=== PATIENT | male | born 1935 | race Caucasian/White ===

== ENCOUNTER 2016-11-15 07:21 | Emergency (ER) | payer MEDICARE ==
[~2016-11-15] VITALS: Ht 177.8 cm; Wt 68.0 kg
--- OUTSIDE RECORDS SUMMARY | 2016-11-15 07:27 | XMS REPORT | Continuity of Care Document ---
Author Author [facility] Organization [facility] Address Unknown Phone Unavailable Care Team Providers Care Well Testing Operator Name Role Phone ZAIN ABARCA MD PCP Insurance Providers Payer Name Policy Number Subscriber Name Relationship [employer] [id number] Alfonso Gomez 20 Self / Same As Patient Problems No known problems or medical conditions. Medications No known medications. Social History Social History Problem Response Recorded Date/Time Recent Foreign Travel No 09/05/2014 2:07pm Hospital Discharge Instructions No hospital discharge instructions. Plan of Care No plan of care. Functional Status No functional status results. Allergies, Adverse Reactions, Alerts No known allergies. Immunizations No immunization records. Vital Signs No known vital signs results. Results No known relevant diagnostic tests, laboratory data and/or discharge summary. Procedures No known history of procedures. Encounters Encounter Location Date/Time Discharged Recurring Via [facility] 09/05/14 2:15pm
[2016-11-15 07:39] LABS: BASOPHILS # (AUTO) 0.1 10^3/uL (0.0-0.1); BASOPHILS % (AUTO) 1 % (0-10); EOSINOPHILS # (AUTO) 0.2 10^3/uL (0.0-0.3); EOSINOPHILS % (AUTO) 3 % (0-10); LYMPHOCYTES # (AUTO) 1.3 X 10^3 (1.0-4.0); LYMPHOCYTES % (AUTO) 18 % (12-44); MEAN CORPUSCULAR HEMOGLOBIN 30 PG (25-34); MEAN CORPUSCULAR HGB CONC 33 G/DL (32-36); MEAN CORPUSCULAR VOLUME 91 FL (80-99); MEAN PLATELET VOLUME 10.5 FL (7.4-10.4); MONOCYTES # (AUTO) 0.8 X 10^3 (0.0-1.0); MONOCYTES % (AUTO) 11 % (0-12); NEUTROPHILS # (AUTO) 4.7 X 10^3 (1.8-7.8); NEUTROPHILS % (AUTO) 67 % (42-75); PLATELET COUNT 223 10^3/uL (130-400); RED BLOOD COUNT 4.68 10^6/uL (4.35-5.85); RED CELL DISTRIBUTION WIDTH 14.3 % (10.0-14.5); WHITE BLOOD COUNT 7.1 10^3/uL (4.3-11.0)
[2016-11-15 07:48] LABS: INR 0.9 (0.8-1.4); PROTHROMBIN TIME PATIENT 12.3 SEC (12.2-14.7)
--- NOTE | 2016-11-15 07:48 | ED Neurological Problem ---
General Chief Complaint: Neurological Problems Stated Complaint: LEFT HAND NUMBNESS/TINGLING Source: patient Exam Limitations: no limitations History of Present Illness Time seen by provider: 07:35 Initial Comments The patient is a 81-year-old white male who presents this morning with a chief complaint of left-sided weakness. He reported that he arose at about 0600 this morning and found the onset of this left sided problem shortly thereafter. 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 It did not affect his ability to walk. The right sided stroke improved substantially but left him with a mild right hand problem. He is right-handed. 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 Timing/Duration: 1-3 hours Allergies and Home Medications Allergies Coded Allergies: No Known Drug Allergies (Unverified , 11/15/16) Constitutional: see HPI Eyes: No Symptoms Reported Ears, Nose, Mouth, Throat: no symptoms reported Respiratory: no symptoms reported Cardiovascular: no symptoms reported Gastrointestinal: no symptoms reported Genitourinary: no symptoms reported Musculoskeletal: see HPI muscle weakness Skin: no symptoms reported Psychiatric/Neurological: No Symptoms Reported Endocrine: No Symptoms Reported Hematologic/Lymphatic: No Symptoms Reported Past Nozksgu-Flhgwq-Bpnxwt Hx Patient Social History Alcohol Use: Denies Use Recreational Drug Use: No Smoking Status: Never a Smoker Recent Hopitalizations: No Surgeries HX Surgeries: No Respiratory Hx Respiratory Disorders: No Cardiovascular Hx Cardiac Disorders: No Neurological Hx Neurological Disorders: Yes Neurological Disorders: Stroke Reproductive System Hx Reproductive Disorders: No Genitourinary Hx Genitourinary Disorders: No Gastrointestinal Hx Gastrointestinal Disorders: No Musculoskeletal Hx Musculoskeletal Disorders: No Endocrine Hx Endocrine Disorders: No HEENT HX ENT Disorders: No Cancer Hx Cancer: No Psychosocial Hx Psychiatric Problems: No Physical Exam Vital Signs Vital Sign - Last 12Hours 11/15/16 07:26 Temp 94.4 Pulse 78 Resp 12 B/P 155/86 Pulse Ox 97 O2 Delivery Room Air Capillary Refill : General Appearance: no apparent distress Neck: full range of motion Respiratory: chest non-tender lungs clear normal breath sounds no respiratory distress no accessory muscle use respiratory distress Cardiovascular: normal peripheral pulses regular rate, rhythm no edema no gallop no JVD no murmur Gastrointestinal: normal bowel sounds non tender soft no organomegaly no pulsatile mass Back: normal inspection no CVA tenderness no vertebral tenderness CVA tenderness (R) CVA tenderness (L) Neurologic/Psychiatric: cryptological technician II-XII nml as tested no motor/sensory deficits alert normal mood/affect oriented x 3 abnormal cerebellar tests Crainal Nerves: normal hearing normal speech PERRL Coordination/Gait: normal finger to nose normal gait Skin: normal color warm/dry Lymphatic: no adenopathy Comments Cranial nerves II through XII are grossly intact. Speech is clear. Biceps and triceps are 2+ and equal bilaterally. He is able to perform alternating finger to thumb movements bilaterally. It is noted that he has contractures of fingers 2 through 5 on the right hand. No nodularity is noted to the palmar flexion tendons. He is able to operations intelligence from that position. Progress/Results/Core Measures Results/Orders Lab Results Laboratory Tests Test 11/15/16 07:33 Range/Units Alanine Aminotransferase (ALT/SGPT) 15 0-55 U/L Albumin 4.0 3.2-4.5 G/DL Alkaline Phosphatase 72 40-136 U/L Anion Gap 11 5-14 MMOL/L Aspartate Amino Transf (AST/SGOT) 21 5-34 U/L BUN/Creatinine Ratio 15 Basophils # (Auto) 0.1 0.0-0.1 10^3/uL Basophils (%) (Auto) 1 0-10 % Blood Urea Nitrogen 15 7-18 MG/DL Calcium Level 8.9 8.5-10.1 MG/DL Carbon Dioxide Level 22 21-32 MMOL/L Chloride Level 106 98-107 MMOL/L Creatinine 1.02 0.60-1.30 MG/DL Eosinophils # (Auto) 0.2 0.0-0.3 10^3/uL Eosinophils (%) (Auto) 3 0-10 % Estimat Glomerular Filtration Rate > 60 Glucose Level 90 70-105 MG/DL Hematocrit 43 40-54 % Hemoglobin 14.2 13.3-17.7 G/DL INR Comment 0.9 0.8-1.4 Lymphocytes # (Auto) 1.3 1.0-4.0 X 10^3 Lymphocytes (%) (Auto) 18 12-44 % Mean Corpuscular Hemoglobin 30 25-34 PG Mean Corpuscular Hemoglobin Concent 33 32-36 G/DL Mean Corpuscular Volume 91 80-99 FL Mean Platelet Volume 10.5 H 7.4-10.4 FL Monocytes # (Auto) 0.8 0.0-1.0 X 10^3 Monocytes (%) (Auto) 11 0-12 % Neutrophils # (Auto) 4.7 1.8-7.8 X 10^3 Neutrophils (%) (Auto) 67 42-75 % Platelet Count 223 130-400 10^3/uL Potassium Level 4.6 3.6-5.0 MMOL/L Prothrombin Time 12.3 12.2-14.7 SEC Red Blood Count 4.68 4.35-5.85 10^6/uL Red Cell Distribution Width 14.3 10.0-14.5 % Sodium Level 139 135-145 MMOL/L Total Bilirubin 1.0 0.1-1.0 MG/DL Total Protein 6.6 6.4-8.2 G/DL Troponin I < 0.30 <0.30 NG/ML White Blood Count 7.1 4.3-11.0 10^3/uL My Orders Orders-JANELLE NICHOLS MD Ct Head Wo (11/15/16 07:31) O2 (11/15/16 07:31) Cbc With Automated Diff (11/15/16 07:31) Comprehensive Metabolic Panel (11/15/16 07:31) Protime With Inr (11/15/16 07:31) Troponin I (11/15/16 07:31) Ua Culture If Indicated (11/15/16 07:31) Aspirin Tablet (Aspirin Tablet) (11/15/16 08:45) Medications Given in ED Current Medications Medications Dose Ordered Sig/Lele Route Start Time Stop Time Status Last Admin Dose Admin Aspirin 325 mg ONCE ONCE PO 11/15/16 08:45 11/15/16 08:46 DC 11/15/16 08:59 325 MG Vital Signs/I&O Vital Sign - Last 12Hours 11/15/16 07:26 Temp 94.4 Pulse 78 Resp 12 B/P 155/86 Pulse Ox 97 O2 Delivery Room Air Departure Communication Progress Notes CT was negative. Laboratory was negative. Given his report of return to usual status, and his muscular and coordination performance, he will be discharged on aspirin. Impression Impression: Primary Impression: TIA Disposition: 01 HOME, SELF-CARE Condition: Improved Departure-Patient Inst. Decision time for Depature: 10:08 Patient Instructions: Transient Ischemic Attack (DC) Add. Discharge Instructions: All discharge instructions reviewed with patient and/or family. Voiced understanding. Add 81 mg aspirin to your daily medications Get appointment to see Dr. Gunn in the next week or 2. JANELLE NICHOLS MD Nov 15, 2016 07:48
[2016-11-15 07:56] LABS: ALANINE AMINOTRANSFERASE 15 U/L (0-55); ANION GAP 11 MMOL/L (5-14); ASPARTATE AMINO TRANSFERASE 21 U/L (5-34); BLOOD UREA NITROGEN 15 MG/DL (7-18); BUN/CREATININE RATIO 15; CALCIUM 8.9 MG/DL (8.5-10.1); CARBON DIOXIDE 22 MMOL/L (21-32); CHLORIDE 106 MMOL/L (98-107); CREATININE SERUM 1.02 MG/DL (0.60-1.30); GFR ESTIMATED > 60; GLUCOSE 90 MG/DL (70-105); POTASSIUM 4.6 MMOL/L (3.6-5.0); SODIUM 139 MMOL/L (135-145); TOTAL PROTEIN 6.6 G/DL (6.4-8.2)
[2016-11-15 08:02] LABS: TROPONIN I < 0.30 NG/ML (<0.30)
--- NOTE | 2016-11-15 08:26 | Diagnostic Imaging Report ---
PROCEDURE: CT head without contrast. TECHNIQUE: Multiple contiguous axial images were obtained through the brain without the use of intravenous contrast. INDICATION: Left-sided weakness. FINDINGS: There is no intracranial hemorrhage, edema, or mass effect. There is prominent periventricular and deep white matter hypodensities compatible with chronic microvascular ischemic changes. There is a 1.1 x 0.6-cm old lacunar infarct in the left periventricular white matter. No hydrocephalus. No extra-axial fluid collection or hemorrhage is seen. Deformity along the anterior wall of the right maxillary sinus and adjacent facial bones is suggestive of an old maxillofacial fracture. The visualized portions of the paranasal sinuses and orbits otherwise appear grossly unremarkable. IMPRESSION: No intracranial hemorrhage. Dictated by: Dictated on workstation # [id number]
[2016-11-15] MEDS ORDERED: ASPIRIN 325 MG (5 GR) TABLET PO ONE (08:45)
[2016-11-15 10:27] VITALS: BP 162/140
== END 2016-11-15 10:28 | disposition home or self-care (01) ==
LOC: EDUNIT# 07:21 → ER 07:24
DX: G45.9 Transient cerebral ischemic attack, unspecified (principal); Z86.73 Personal history of transient ischemic attack (TIA), and cerebral infarction without residual deficits
CPT/HCPCS: 36415; 70450; 80053; 84484; 85025; 85610

== ENCOUNTER 2016-12-18 14:08 | Outpatient (CLI) | payer MEDICARE ==
[~2016-12-18] VITALS: Ht 177.8 cm; Wt 68.0 kg
--- OUTSIDE RECORDS SUMMARY | 2016-12-18 14:11 | XMS REPORT | Continuity of Care Document ---
Author Author [facility] Organization [facility] Address Unknown Phone Unavailable Care Team Providers Care Speech Language Pathologist Assistant Name Role Phone ZAIN ABARCA MD PCP Insurance Providers Payer Name Policy Number Subscriber Name Relationship [employer] [id number] Alfonso Gomez 20 Self / Same As [...] Encounters Encounter Location Date/Time Discharged Recurring Via [facility] 09/05/14 2:15pm
[2016-12-18 14:14] VITALS: BP 125/71
[2016-12-18] MEDS ORDERED: DOXA8TAB73 PO (14:17)
[2016-12-18] MEDS ORDERED: ATOR40TA70 PO (14:17)
[2016-12-18] MEDS ORDERED: ASPI-586 PO (14:17)
[2016-12-18] MEDS ORDERED: FINA5TAB6 PO (14:17)
[2016-12-18 14:51] LABS: BASOPHILS # (AUTO) 0.1 10^3/uL (0.0-0.1); BASOPHILS % (AUTO) 1 % (0-10); EOSINOPHILS # (AUTO) 0.1 10^3/uL (0.0-0.3); EOSINOPHILS % (AUTO) 1 % (0-10); LYMPHOCYTES # (AUTO) 0.9 X 10^3 (1.0-4.0); LYMPHOCYTES % (AUTO) 14 % (12-44); MEAN CORPUSCULAR HEMOGLOBIN 31 PG (25-34); MEAN CORPUSCULAR HGB CONC 34 G/DL (32-36); MEAN CORPUSCULAR VOLUME 91 FL (80-99); MEAN PLATELET VOLUME 10.3 FL (7.4-10.4); MONOCYTES # (AUTO) 0.8 X 10^3 (0.0-1.0); MONOCYTES % (AUTO) 12 % (0-12); NEUTROPHILS # (AUTO) 4.4 X 10^3 (1.8-7.8); NEUTROPHILS % (AUTO) 71 % (42-75); PLATELET COUNT 211 10^3/uL (130-400); RED BLOOD COUNT 4.46 10^6/uL (4.35-5.85); RED CELL DISTRIBUTION WIDTH 14.1 % (10.0-14.5); WHITE BLOOD COUNT 6.1 10^3/uL (4.3-11.0)
[2016-12-18 15:10] LABS: ANION GAP 12 MMOL/L (5-14); BLOOD UREA NITROGEN 17 MG/DL (7-18); BUN/CREATININE RATIO 15; CALCIUM 8.9 MG/DL (8.5-10.1); CARBON DIOXIDE 21 MMOL/L (21-32); CHLORIDE 108 MMOL/L (98-107); CREATININE SERUM 1.13 MG/DL (0.60-1.30); GFR ESTIMATED > 60; GLUCOSE 89 MG/DL (70-105); POTASSIUM 3.8 MMOL/L (3.6-5.0); SODIUM 141 MMOL/L (135-145)
--- NOTE | 2016-12-18 16:30 | Diagnostic Imaging Report ---
PA and lateral views of the chest. INDICATION: Preoperative evaluation. FINDINGS: There is air under the right hemidiaphragm which appears to be within a colonic loop. There is eventration of the left hemidiaphragm with a relatively large herniating abdominal content with air-fluid level suggestive of a hernia. This could be a hiatal or other diaphragmatic hernia. Mild left basilar atelectasis adjacent to it is seen. The heart size is borderline enlarged. No effusion or pneumothorax. The mediastinum and ron appear unremarkable. IMPRESSION: There is a [id number]-ffrxt left hiatal or other diaphragmatic hernia containing mildly distended stomach. Mild left basilar atelectasis adjacent to the hernia seen. Dictated by: Dictated on workstation # [id number]
== END 2016-12-18 14:55 | disposition home or self-care (01) ==
LOC: PREOP 14:08
PROVIDERS: ATTEND Urology
DX: Z01.810 Encounter for preprocedural cardiovascular examination (principal); Z01.811 Encounter for preprocedural respiratory examination; Z01.812 Encounter for preprocedural laboratory examination; Z11.2 Encounter for screening for other bacterial diseases; N40.1 Benign prostatic hyperplasia with lower urinary tract symptoms; R33.8 Other retention of urine; R32 Unspecified urinary incontinence
CPT/HCPCS: 36415; 71020; 80048; 85025; 86850; 86900; 86901; 87081; 93005

== ENCOUNTER 2016-12-23 06:20 | Day surgery (SDC) | payer MEDICARE ==
[~2016-12-23] VITALS: Ht 177.8 cm; Wt 68.0 kg
[~2016-12-23 06:20] MED LIST: ASPI-586 PO; ATOR40TA70 PO; DOXA8TAB73 PO; FINA5TAB6 PO
[2016-12-23] MEDS ORDERED: NS (IVPB) 50 ML ONE (06:24)
[2016-12-23] MEDS ORDERED: cefTRIAXone 1 GM (ROCEPHIN) VIAL ONE (06:24)
--- OUTSIDE RECORDS SUMMARY | 2016-12-23 06:26 | XMS REPORT | Continuity of Care Document ---
Author Author [facility] Organization [facility] Address Unknown Phone Unavailable Care Team Providers Care Dehydration Unit Operator Name Role Phone ZAIN ABARCA MD PCP Insurance Providers Payer Name Policy Number Subscriber Name Relationship [employer] [id number] Alfonso Gomez 20 Self / Same As [...] Encounters Encounter Location Date/Time Discharged Recurring Via [facility] 09/05/14 2:15pm
--- OUTSIDE RECORDS SUMMARY | 2016-12-23 06:28 | XMS REPORT | Continuity of Care Document ---
Author Author [facility] Organization [facility] Address Unknown Phone Unavailable Care Team Providers Care Topstitcher Zigzag Name Role Phone ZAIN ABARCA MD PCP Insurance Providers Payer Name Policy Number Subscriber Name Relationship [employer] [id number] Alfonso Gomez 20 Self / Same As [...] Encounters Encounter Location Date/Time Discharged Recurring Via [facility] 09/05/14 2:15pm
[2016-12-23] MEDS ORDERED: fentaNYL INJECTION 100 MCG/2 ML AMP ONE (06:48)
[2016-12-23] MEDS ORDERED: LACTATED RINGERS 1,000 ML IV PRN (06:48)
[2016-12-23] MEDS ORDERED: MIDAZOLAM 2 MG/2 ML (VERSED) VIAL ONE (06:49)
[2016-12-23] MEDS ORDERED: CATHETER FLUSH 10 ML SYR IV PRN (07:00)
[2016-12-23] MEDS ORDERED: cefTRIAXone 1 GM/NS 50 ML IVPB IV ONE ×2 (07:00)
--- NOTE | 2016-12-23 07:04 | Progress Note-Pre Operative ---
Pre-Operative Progress Note H&P Reviewed The H&P was reviewed, patient examined and no changes noted. Date H&P Reviewed: Dec 23, 2016 Time H&P Reviewed: 07:04 Pre-Operative Diagnosis: BPH, PROSTATISM, RETENTION, AND INCONTINENCE CASEY BLANDON MD Dec 23, 2016 7:04 am
[2016-12-23] MEDS ORDERED: LACTATED RINGERS 1,000 ML IV SCH (07:05)
--- NOTE | 2016-12-23 07:05 | Progress Note-Post Operative ---
Post-Operative Progess Note Pre-Operative Diagnosis BPH, PROSTATISM, RETENTION, AND INCONTINENCE Post-Operative Diagnosis SAME Post-Op Procedure Note Date of Procedure: Dec 23, 2016 Name of Procedure: TURP Anesthesia Type SPINAL AND GENERAL Estimated blood loss (mL): 100CC Specimen(s) collected PROSTATE CHIPS CASEY BLANDON MD Dec 23, 2016 7:05 am
[2016-12-23] MEDS ORDERED: ZOLPIDEM 5 MG (AMBIEN) TAB PO PRN (07:15)
[2016-12-23] MEDS ORDERED: HYDROcodone/APAP 10 MG/325 MG (LORTAB) TAB PO PRN (07:15)
[2016-12-23] MEDS ORDERED: BELLADONNA ALK/OPIUM (B & O) 30 MG SUPP PR PRN (07:15)
[2016-12-23] MEDS ORDERED: MILK OF MAGNESIA 400 MG/5 ML 30 ML UDC PO PRN (07:15)
[2016-12-23] MEDS: LACTATED RINGERS 1,000 ML IV SCH ×2 (07:21→12:26)
[2016-12-23 07:30] VITALS: BP 179/80
[2016-12-23] MEDS ORDERED: ONDANSETRON 4 MG/2 ML (SDV) Z0FRAN ONE (08:32)
[2016-12-23] MEDS ORDERED: LACTATED RINGERS 2,000 ML IV ONE (08:32)
[2016-12-23] MEDS ORDERED: SEVOFLURANE (ULTANE) 15 ML INHAL SOLN ONE (08:32)
[2016-12-23] MEDS ORDERED: LIDOCAINE PF 2% 10 ML (XYLOCAINE) AMP ONE (08:32)
[2016-12-23] MEDS ORDERED: proPOfol 200 MG/20 ML (DIPRIVAN) VIAL IV ONE (08:32)
[2016-12-23] MEDS ORDERED: LIDOCAINE JELLY 2% (XYLOCAINE) 5 ML TUBE ONE (08:32)
[2016-12-23] MEDS ORDERED: PROPOFOL INJECTION 50 ML IV ONE (08:33)
[2016-12-23] MEDS ORDERED: diphenhydrAMINE 50 MG/ML INJ (BENADRYL) IV PRN (09:15)
[2016-12-23] MEDS ORDERED: ONDANSETRON 4 MG/2 ML (SDV) Z0FRAN IV PRN (09:15)
[2016-12-23] MEDS ORDERED: NALOXONE 0.4 MG/ML 1 ML (NARCAN) VIAL IV PRN (09:15)
[2016-12-23 10:00] VITALS: BP 148/68
[2016-12-23 10:22] VITALS: BP 158/79
--- NOTE | 2016-12-23 11:09 | OPERATIVE REPORT ---
PROCEDURE PHYSICIAN: CASEY BLANDON DATE OF PROCEDURE: 12/23/2016 PREOPERATIVE DIAGNOSES: 1. BPH with prostatism. 2. Urinary retention. 3. Urinary incontinence. 4. With possible overactive bladder. POSTOPERATIVE DIAGNOSES: 1. BPH with prostatism. 2. Urinary retention. 3. Urinary incontinence. 4. With possible overactive bladder. OPERATION: Transurethral resection of the prostate. SURGEON: Dr. Blandon. ANESTHESIA: Spinal and general. COMPLICATIONS: None. PROCEDURE: Under satisfactory spinal anesthesia, the patient in lithotomy position, the genitalia were prepped and draped in the usual sterile fashion. The urethra was dilated with Hayde sound to accommodate 27-Kuwaiti Charlton resectoscope. Starting resecting first the circumferentially around the bladder neck and then the right lateral lobe, followed by the left lateral lobe. During the resection of the cuff, the patient was coughing repeatedly which made the resection difficult and treacherous, so we went ahead and put the patient to sleep and proceeded with the surgery at completion. The prostate was well resected. The capsule was visualized at many points. Bleeders were cauterized as the resection was proceeding. Hemostasis was complete and resection was very adequate. Prostatic cyst was evacuated and cystoscopy confirmed intact. Ureteric orifices, VERU and sphincter with good efflux. The resectoscope was removed and a 22-Kuwaiti, three-way 30 mL balloon catheter was inserted in the bladder. Balloon inflated to 40 mL, connected to continuous bladder irrigation, with normal saline, the return of which was pinkish. Estimated blood loss 100 mL, none of which was replaced. The patient tolerated the procedure and anesthesia well and was sent to recovery room in stable condition. PLAN: As explained to the patient and his daughter preoperatively, we will see the effect of the TURP or his voiding problems. If he continues to have overactive bladder and some incontinence, we will put him on anticholinergic without urine retention. Job ID: [id number] Dictated Date: 12/23/2016 08:53:15 Adult Neuropsychologist Date: 12/23/2016 10:12:59 / justo
[2016-12-23 12:00] VITALS: BP 175/60
[2016-12-23] MEDS: DOCUSATE SODIUM 100 MG (COLACE) CAP PO SCH ×2 (12:22→20:09)
[2016-12-23 16:00] VITALS: BP 169/79
[2016-12-23 20:00] VITALS: BP 115/67
[2016-12-23] MEDS ORDERED: FLU TRIvalent (5 YOA+) 2016-17 (AFLURIA) 0.5 ML IM ONE (20:00)
[2016-12-24] VITALS: BP 160/75
[2016-12-24 04:00] VITALS: BP 163/80
[2016-12-24] MEDS ORDERED: LEVOFLOXACIN 500 MG/100 ML IV 100 ML IV NR (07:00)
[2016-12-24 08:00] VITALS: BP 167/79
[2016-12-24] MEDS: LACTATED RINGERS 1,000 ML IV SCH ×3 (08:32→15:05)
[2016-12-24] MEDS: DOCUSATE SODIUM 100 MG (COLACE) CAP PO SCH (08:39)
--- NOTE | 2016-12-24 08:55 | Progress Note-Urology ---
Progress Note-Urology Progress Notes/Assess & Plan Progress/Assessment & Plan AFEBRILE, VSS, NO COMPLAINTS, URINE TINGED. PLAN PER ORDERS Final Diagnosis BPH POST TURP CASEY BLANDON MD Dec 24, 2016 8:55 am
[2016-12-24 12:00] VITALS: BP 153/66
--- NOTE | 2016-12-24 12:35 | Anesthesia-Regional Post-Op ---
Regional Patient Condition Mental Status: Alert, Oriented x3 Circulation: Same as Pre-Op Headache: Absent Sensation: Full Recovery Motor Block: Absent Post Op Complications Complications None Follow Up Care/Instructions Patient Instructions None needed. Anesthesia/Patient Condition Patient is doing well, no complaints, stable vital signs, no apparent adverse anesthesia problems. No complications reported per nursing. SONAM MOORE CRNA Dec 24, 2016 12:35
--- NOTE | 2016-12-24 12:36 | Anesthesia-General Post-Op ---
General Patient Condition Mental Status/LOC: Same as Preop Cardiovascular: Satisfactory Nausea/Vomiting: Absent Respiratory: Satisfactory Pain: Controlled Complications: Absent Post Op Complications Complications None Follow Up Care/Instructions Patient Instructions None needed. Anesthesia/Patient Condition Patient Condition Patient is doing well, no complaints, stable vital signs, no apparent adverse anesthesia problems. No complications reported per nursing. SONAM MOORE CRNA Dec 24, 2016 12:36
[2016-12-24] MEDS ORDERED: CIPR-225 PO (17:03)
== END 2016-12-24 17:50 | disposition home or self-care (01) ==
LOC: SDC 06:20 → 4TH 10:33 → SDC 12-24 17:50
PROVIDERS: ATTEND Urology
DX: N40.1 Benign prostatic hyperplasia with lower urinary tract symptoms (principal); R33.9 Retention of urine, unspecified; R32 Unspecified urinary incontinence; E78.5 Hyperlipidemia, unspecified; Z86.73 Personal history of transient ischemic attack (TIA), and cerebral infarction without residual deficits; Z87.891 Personal history of nicotine dependence
CPT/HCPCS: 88305; 94664; 94760

== ENCOUNTER → 2021-05-22 | Outpatient (CLI) | payer MEDICARE ==
[~2021-05-22] MED LIST changes: +CIPR-225 PO
--- NOTE | 2021-05-22 12:47 | Diagnostic Imaging Report ---
EXAMINATION: CT abdomen and pelvis without contrast. TECHNIQUE: Multiple contiguous axial images were obtained through the abdomen and pelvis without the use of intravenous contrast. All CT scans use one or more of the following dose optimizing techniques: automated exposure control, MA and/or KvP adjustment based on patient size and exam type or iterative reconstruction. HISTORY: Prostate cancer COMPARISON: None available. FINDINGS: Lung bases: There is a 0.8 cm right lower lobe subpleural pulmonary nodule. Atelectasis or scarring is seen within the lung bases. Solid organs: The liver is normal. The gallbladder is normal. There is no biliary ductal dilation. Pancreas is normal. Spleen is normal. Adrenal glands are normal. The kidneys are normal without visualized calculus or hydronephrosis. Bowel: There is a large hiatal hernia. There is no bowel obstruction. There is a moderate volume of stool seen throughout the colon. There are a few scattered colonic diverticula. No findings of acute appendicitis. Peritoneum: There is no intraperitoneal free fluid or free air. No suspicious lymphadenopathy. Vasculature: Calcification of the aorta without aneurysm. Musculoskeletal: Degenerative changes of the spine without suspicious osseous lesion or compression fracture. Pelvis: The prostate gland is enlarged. The urinary bladder is normal. IMPRESSION: 1. A 0.8 cm right lower lobe subpleural pulmonary nodule. Consider further evaluation with PET/CT. 2. No other findings of metastatic disease within the abdomen or pelvis. 3. Large hiatal hernia. Dictated by: Dictated on workstation # [id number]
--- NOTE | 2021-05-22 15:57 | Diagnostic Imaging Report ---
INDICATION: Prostate carcinoma. TECHNIQUE: The patient was administered 27.0 mCi of technetium 99m MDP intravenously and whole-body imaging was performed after a 3 hour delay. COMPARISON: No prior bone scans are available for comparison. FINDINGS: There is normal uptake of activity by the axial and appendicular skeleton. There is uptake by both kidneys with excretion into the urinary bladder. Mild uptake in the left shoulder is noted, likely degenerative. No suspicious uptake is seen to suggest osseous metastatic disease. IMPRESSION: No scintigraphic evidence of osseous metastatic disease. Dictated by: Dictated on workstation # [id number]
== END ==
LOC: CARD 12:00
PROVIDERS: ATTEND Urology
DX: K44.9 Diaphragmatic hernia without obstruction or gangrene (principal); C61 Malignant neoplasm of prostate; R91.1 Solitary pulmonary nodule
CPT/HCPCS: 74176; 78306; A9503

== ENCOUNTER 2021-07-23 09:32 | Emergency (ER) | payer MEDICARE ==
[~2021-07-23] VITALS: Ht 177 cm; Wt 59.0 kg
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
[2021-07-23] MEDS ORDERED: ACETAMINOPHEN 500 MG TAB (TYLENOL) PO ONE (10:30)
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
[2021-07-23 11:37] VITALS: BP 167/80
== END 2021-07-23 11:37 | disposition home or self-care (01) ==
LOC: EDUNIT# 09:32 → ER 09:34
DX: M25.511 Pain in right shoulder (principal); I10 Essential (primary) hypertension; F03.90 Unspecified dementia, unspecified severity, without behavioral disturbance, psychotic disturbance, mood disturbance, and anxiety; Z86.73 Personal history of transient ischemic attack (TIA), and cerebral infarction without residual deficits; Z79.82 Long term (current) use of aspirin
CPT/HCPCS: 73000; 73030; 99283; A4565

== ENCOUNTER 2021-07-26 05:35 | Outpatient (CLI) | payer MEDICARE ==
[~2021-07-26] VITALS: Ht 177.8 cm; Wt 60.4 kg
[2021-07-27] MEDS ORDERED: FINA5TAB6 PO (08:25)
== END 2021-07-27 13:23 | disposition home or self-care (01) ==
LOC: PREOP 05:35
PROVIDERS: ATTEND Urology
DX: Z01.818 Encounter for other preprocedural examination (principal)

== ENCOUNTER 2021-07-31 07:04 | Day surgery (SDC) | payer MEDICARE ==
[~2021-07-31] VITALS: Ht 177.8 cm; Wt 60.4 kg
[2021-07-31] VITALS (10 sets, daily range): BP systolic 172–190; BP diastolic 86–97
[2021-07-31] MEDS ORDERED: cefTRIAXone 1,000 MG in WATER (STERILE) FOR INJECTION 10 ML IV ONE (07:30)
--- NOTE | 2021-07-31 07:30 | Progress Note-Pre Operative ---
Pre-Operative Progress Note H&P Reviewed The H&P was reviewed, patient examined and no changes noted. Date Seen by Provider: Jul 31, 2021 Time Seen by Provider: 07:30 Date H&P Reviewed: Jul 31, 2021 Time H&P Reviewed: 07:30 Pre-Operative Diagnosis: CA PROSTATE CASEY BLANDON MD Jul 31, 2021 07:30
--- NOTE | 2021-07-31 07:38 | Progress Note-Post Operative ---
Post-Operative Progess Note Surgeon (s)/Vat Tender (s) Surgeon CASEY BLANDON MD Vat Tender: NONE Pre-Operative Diagnosis CA PROSTATE Post-Operative Diagnosis SAME Procedure & Operative Findings Date of Procedure 07/31/21 Procedure Performed/Findings SPACE OAR PLACEMENT Anesthesia Type GENERAL Estimated Blood Loss Estimated blood loss (mL): NONE Specimens/Packing Specimens Removed NONE Packing: NONE CASEY BLANDON MD Jul 31, 2021 07:38
--- NOTE | 2021-07-31 07:40 | Discharge Inst-Urology ---
Discharge Inst-Urology Reconcile Patient Problems Problems Reviewed?: Yes Final Diagnosis CA PROSTATE Patient Instructions/Follow Up Plan/Assessment/Instructions Please make appointment to been seen in office in 2 weeks. Keep bowels soft and moving Increase oral fluids for 48 hours and then as needed. Diet and Activity as tolerated. If questions or concerns contact your physician Or seek help at emergency department. CASEY BLANDON MD Jul 31, 2021 07:40
[2021-07-31] MEDS ORDERED: LACTATED RINGERS 1,000 ML IV PRN (09:00)
[2021-07-31] MEDS ORDERED: proPOfol 200 MG/20 ML (DIPRIVAN) VIAL IV ONE (09:01)
[2021-07-31] MEDS ORDERED: fentaNYL INJ 100 MCG/2 ML AMP ONE (09:01)
[2021-07-31] MEDS ORDERED: ONDANSETRON 4 MG/2 ML (SDV) Z0FRAN ONE (09:01)
[2021-07-31] MEDS ORDERED: LIDOCAINE PF 2% 5 ML (XYLOCAINE) VIAL ONE (09:01)
[2021-07-31] MEDS ORDERED: SEVOFLURANE (ULTANE) 15 ML INHAL SOLN ONE (09:36)
[2021-07-31] MEDS ORDERED: morphine INJ 10 MG/ML 1ML (SYR OR VIAL) IVP ONE (10:00)
--- NOTE | 2021-07-31 10:39 | Anesthesia-General Post-Op ---
General Patient Condition Mental Status/LOC: Same as Preop Cardiovascular: Satisfactory Nausea/Vomiting: Absent Respiratory: Satisfactory Pain: Controlled Complications: Absent Post Op Complications Complications None Follow Up Care/Instructions Patient Instructions None needed. Anesthesia/Patient Condition Patient Condition Patient is doing well, no complaints, stable vital signs, no apparent adverse anesthesia problems. No complications reported per nursing. AB SWEENEY CRNA Jul 31, 2021 10:39
[2021-07-31] MEDS ORDERED: CIPR-225 PO (11:10)
[2021-07-31] MEDS ORDERED: KETO10TA PO (11:12)
== END 2021-07-31 11:50 | disposition home or self-care (01) ==
LOC: SDC 07:04
PROVIDERS: ATTEND Urology
DX: C61 Malignant neoplasm of prostate (principal); I10 Essential (primary) hypertension; E78.5 Hyperlipidemia, unspecified; I73.9 Peripheral vascular disease, unspecified; Z79.82 Long term (current) use of aspirin; Z79.899 Other long term (current) drug therapy; Z86.73 Personal history of transient ischemic attack (TIA), and cerebral infarction without residual deficits
CPT/HCPCS: 55874; 87081; C1889

== ENCOUNTER → 2021-09-18 | Outpatient (RCR) | payer MEDICARE ==
[~2021-09-18] MED LIST changes: +KETO10TA PO
== END | disposition home or self-care (01) ==
LOC: ONC 06-20 13:51
PROVIDERS: ATTEND Radiology Radiation Oncology
DX: Z51.0 Encounter for antineoplastic radiation therapy (principal); C61 Malignant neoplasm of prostate; E78.5 Hyperlipidemia, unspecified; I10 Essential (primary) hypertension; Z90.79 Acquired absence of other genital organ(s)
CPT/HCPCS: 77300; 77301; 77334; 77336; 77338; 77385; 99204

== ENCOUNTER 2021-09-19 09:40 | Outpatient (RCR) | payer MEDICARE | END 2021-10-05 | disposition home or self-care (01) | LOC: ONC 09:40 | PROVIDERS: ATTEND Radiology Radiation Oncology | DX: C61 Malignant neoplasm of prostate (principal); E78.5 Hyperlipidemia, unspecified; I10 Essential (primary) hypertension; Z90.79 Acquired absence of other genital organ(s) | CPT/HCPCS: 77336; 77385 ==

== ENCOUNTER → 2022-01-03 | Outpatient (RCR) | payer MEDICARE | LOC: ONC 10:10 | PROVIDERS: ATTEND Radiology Radiation Oncology | DX: C61 Malignant neoplasm of prostate (principal); E78.5 Hyperlipidemia, unspecified; I10 Essential (primary) hypertension; Z90.79 Acquired absence of other genital organ(s) | CPT/HCPCS: 84153; G0463; 36415; 99213 ==

== ENCOUNTER 2022-04-15 11:59 | Emergency (ER) | payer MEDICARE, OTHER ==
[~2022-04-15] VITALS: Ht 177.8 cm; Wt 72.6 kg
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
[2022-04-15 12:38] LABS: BASOPHILS % (AUTO) 0 % (0-10); EOSINOPHILS % (AUTO) 1 % (0-10); HEMATOCRIT 38 % (40-54); HEMOGLOBIN 12.9 g/dL (13.3-17.7); LYMPHOCYTES # (AUTO) 0.8 10^3/uL (1.0-4.0); LYMPHOCYTES % (AUTO) 14 % (12-44); MEAN CORPUSCULAR HEMOGLOBIN 31 pg (25-34); MEAN CORPUSCULAR HGB CONC 34 g/dL (32-36); MEAN CORPUSCULAR VOLUME 90 fL (80-99); MEAN PLATELET VOLUME 9.2 fL (9.0-12.2); MONOCYTES # (AUTO) 0.6 10^3/uL (0.0-1.0); MONOCYTES % (AUTO) 10 % (0-12); NEUTROPHILS # (AUTO) 4.4 10^3/uL (1.8-7.8); NEUTROPHILS % (AUTO) 74 % (42-75); PLATELET COUNT 173 10^3/uL (130-400); WHITE BLOOD COUNT 5.9 10^3/uL (4.3-11.0)
[2022-04-15 12:49] LABS: ALBUMIN 3.8 GM/DL (3.2-4.5); POTASSIUM 3.8 MMOL/L (3.6-5.0)
[2022-04-15 12:51] LABS: CALCIUM 8.8 MG/DL (8.5-10.1); INR 0.9 (0.8-1.4); PROTHROMBIN TIME PATIENT 12.9 SEC (12.2-14.7)
[2022-04-15 12:52] LABS: TOTAL PROTEIN 6.5 GM/DL (6.4-8.2)
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
[2022-04-15] MEDS ORDERED: LABETALOL HCL 20 MG/4 ML VIAL IV ONE (14:00)
[2022-04-15] MEDS ORDERED: hydrALAZINE (APESOLINE) 20 MG/ML VIAL IV ONE (14:30)
[2022-04-15 15:30] VITALS: BP 164/68
== END 2022-04-15 15:30 | disposition short-term general hospital (02) ==
LOC: EDUNIT# 11:59 → ER 12:07
DX: S06.6X9A Traumatic subarachnoid hemorrhage with loss of consciousness of unspecified duration, initial encounter (principal); I10 Essential (primary) hypertension; V18.4XXA Pedal cycle driver injured in noncollision transport accident in traffic accident, initial encounter; Y93.I9 Activity, other involving external motion; Y92.410 Unspecified street and highway as the place of occurrence of the external cause
CPT/HCPCS: 36415; 70450; 72125; 80053; 85025; 85610; 85730; 99291

== ENCOUNTER 2022-08-01 11:57 | Emergency (ER) | payer MEDICARE, MEDICAID ==
[~2022-08-01] VITALS: Ht 177.8 cm; Wt 52.4 kg
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
[2022-08-01 12:33] LABS: BASOPHILS # (AUTO) 0.1 10^3/uL (0.0-0.1); BASOPHILS % (AUTO) 1 % (0-10); EOSINOPHILS # (AUTO) 0.1 10^3/uL (0.0-0.3); EOSINOPHILS % (AUTO) 1 % (0-10); HEMATOCRIT 32 % (40-54); HEMOGLOBIN 10.8 g/dL (13.3-17.7); LYMPHOCYTES # (AUTO) 0.6 10^3/uL (1.0-4.0); LYMPHOCYTES % (AUTO) 10 % (12-44); MEAN CORPUSCULAR HEMOGLOBIN 32 pg (25-34); MEAN CORPUSCULAR HGB CONC 34 g/dL (32-36); MEAN CORPUSCULAR VOLUME 94 fL (80-99); MEAN PLATELET VOLUME 10.1 fL (9.0-12.2); MONOCYTES # (AUTO) 0.7 10^3/uL (0.0-1.0); MONOCYTES % (AUTO) 11 % (0-12); NEUTROPHILS # (AUTO) 4.9 10^3/uL (1.8-7.8); NEUTROPHILS % (AUTO) 77 % (42-75); PLATELET COUNT 233 10^3/uL (130-400); WHITE BLOOD COUNT 6.4 10^3/uL (4.3-11.0)
[2022-08-01 12:41] LABS: POTASSIUM 3.9 MMOL/L (3.6-5.0)
[2022-08-01 12:42] LABS: CALCIUM 8.9 MG/DL (8.5-10.1)
[2022-08-01 12:46] LABS: CREATININE SERUM 0.85 MG/DL (0.60-1.30)
[2022-08-01 12:56] LABS: BILIRUBIN,URINE NEGATIVE (NEGATIVE); CLARITY,URINE CLEAR; COLOR,URINE YELLOW; GLUCOSE, URINE (UA) NEGATIVE (NEGATIVE); KETONES,URINE NEGATIVE (NEGATIVE); LEUKOCYTE ESTERASE ,URINE 1+ (NEGATIVE); NITRITE,URINE NEGATIVE (NEGATIVE); PH,URINE 5.5 (5-9); PROTEIN,URINE NEGATIVE (NEGATIVE)
[2022-08-01 13:02] LABS: BACTERIA,URINE MODERATE /HPF
[2022-08-01 13:32] VITALS: BP 124/84
== END 2022-08-01 13:32 | disposition home or self-care (01) ==
LOC: EDUNIT# 11:57 → ER 12:00
DX: R40.0 Somnolence (principal)
CPT/HCPCS: 36415; 51701; 80048; 81000; 82947; 85025; 87077; 87088; 87186

== ENCOUNTER 2022-08-15 14:16 | Emergency (ER) | payer MEDICARE, MEDICAID ==
[~2022-08-15] VITALS: Ht 177.8 cm; Wt 52.4 kg
--- NOTE | 2022-08-15 16:28 | Diagnostic Imaging Report ---
INDICATION: Head drooping and drooling. EXAMINATION: Portable chest, 4:08 p.m. FINDINGS: Heart size and pulmonary vascularity are normal. Lungs are clear. There are no effusions or pneumothoraces. There is a hiatal hernia. IMPRESSION: No acute abnormalities in the chest. Dictated by: Dictated on workstation # [id number]
[2022-08-15 16:31] LABS: BASOPHILS # (AUTO) 0.1 10^3/uL (0.0-0.1); BASOPHILS % (AUTO) 1 % (0-10); EOSINOPHILS # (AUTO) 0.1 10^3/uL (0.0-0.3); EOSINOPHILS % (AUTO) 1 % (0-10); HEMATOCRIT 34 % (40-54); HEMOGLOBIN 11.4 g/dL (13.3-17.7); LYMPHOCYTES % (AUTO) 13 % (12-44); MEAN CORPUSCULAR HEMOGLOBIN 31 pg (25-34); MEAN CORPUSCULAR HGB CONC 34 g/dL (32-36); MEAN CORPUSCULAR VOLUME 93 fL (80-99); MEAN PLATELET VOLUME 10.4 fL (9.0-12.2); MONOCYTES % (AUTO) 13 % (0-12); NEUTROPHILS # (AUTO) 5.4 10^3/uL (1.8-7.8); NEUTROPHILS % (AUTO) 72 % (42-75); PLATELET COUNT 251 10^3/uL (130-400); WHITE BLOOD COUNT 7.5 10^3/uL (4.3-11.0)
--- NOTE | 2022-08-15 16:33 | Diagnostic Imaging Report ---
INDICATION: Stroke alert, facial drooping and right-sided weakness. TECHNIQUE: Multiple contiguous axial images were obtained through the brain without the use of intravenous contrast. Auto Exposure Controls were utilized during the CT exam to meet ALARA standards for radiation dose reduction. COMPARISON: Comparison made to prior CT of 04/15/2022. FINDINGS: There are fairly extensive atrophic changes throughout the cerebral hemispheres. There are fairly extensive chronic ischemic changes in the deep white matter with old lacunar infarcts in the left periventricular white matter. There is no subdural or epidural collection. There is no acute hemorrhage. There is an old occipital infarct on the left side. Compared to the prior study, the subarachnoid blood in the left sylvian fissure and left temporal sulci appears to have resolved with no recurrence. Calvarial windows show no acute finding. There is chronic deformity of the anterior wall of the right maxillary sinus. IMPRESSION: Fairly extensive atrophic change and chronic ischemic change in deep white matter. Resolution of subarachnoid hemorrhage compared with 04/15/2022. 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 No acute intracranial finding. Dictated by: Dictated on workstation # [id number]
[2022-08-15 16:34] LABS: ALBUMIN 3.8 GM/DL (3.2-4.5); CHLORIDE 108 MMOL/L (98-107); POTASSIUM 4.6 MMOL/L (3.6-5.0); SODIUM 142 MMOL/L (135-145)
[2022-08-15 16:35] LABS: CALCIUM 9.4 MG/DL (8.5-10.1)
[2022-08-15 16:37] LABS: GLUCOSE 123 MG/DL (70-105); TOTAL PROTEIN 6.7 GM/DL (6.4-8.2)
[2022-08-15 16:38] LABS: BILIRUBIN,TOTAL 0.8 MG/DL (0.1-1.0); CARBON DIOXIDE 25 MMOL/L (21-32)
[2022-08-15 16:40] LABS: ALKALINE PHOSPHATASE 100 U/L (40-136); CREATININE SERUM 0.99 MG/DL (0.60-1.30); GFR ESTIMATED 75
[2022-08-15 16:41] LABS: BUN/CREATININE RATIO 28
[2022-08-15 16:42] LABS: FIBRIN DEGRADATION PRODUCTS 0.74 UG/ML (0.00-0.49); INR 0.9 (0.8-1.4); PROTHROMBIN TIME PATIENT 12.6 SEC (12.2-14.7)
[2022-08-15 16:43] LABS: ALANINE AMINOTRANSFERASE 23 U/L (0-55)
--- NOTE | 2022-08-15 17:08 | ED General ---
General Chief Complaint: General Problems/Pain Stated Complaint: WEAKNESS Nursing Triage Note: PT TO ED FROM [facility] WITH STAFF WHO REPORT THEY NOTICED PT HEAD DROOPING MORE, INCREASED DROOLING, DECREASED APPETITE, AND R SIDED WEAKNESS TODAY. STAFF REPORTS PT USUALLY ABLE TO AMB WITH WALKER, PT MAX ASSIST AT THIS TIME. Source of Information: Caregiver, Care Home Records, Old Records Exam Limitations: Other (confused, altered mental status) (SHANKAR BAPTISTE) History of Present Illness Date Seen by Provider: Aug 15, 2022 Time Seen by Provider: 16:47 Initial Comments Patient is an 87 y/o M with history of subarachnoid hemorrhage earlier this year who presents today from [facility] with CC of confusion and right sided weakness which started this morning around lunch time. Patient was noticed to be sitting with his chin tucked into his chest with his right arm and hand held closely at his side. He was also noticed to be drooling out of the right corner of his mouth. COMPLIANCE ADMINISTRATOR states he is very confused, has a poor appetite recently, and was incontinent of stool and urine today. He is alert to loud sounds but has confused speech in response to questions. He knows his name but thinks he is in [place]. Unable to answer any questions about pain or right arm contracture. Able to move all 4 extremities with a lot of encouragement. 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 Unable to obtain review of systems secondary to the patient's somnolence/confusion Timing/Duration: 1 Day Associated Systoms: Denies Symptoms (SHANKAR BAPTISTE) Allergies and Home Medications Allergies Coded Allergies: Sulfa (Sulfonamide Antibiotics) (Verified Allergy, Unknown, 08/01/22) Patient Home Medication List Home Medication List Reviewed: Yes (SHANKAR BAPTISTE) Home Medication List Reviewed: Yes (JAYDON LEIGH MD) Atorvastatin Calcium (Atorvastatin Calcium) 40 Mg Tablet, 40 MG PO DAILY, (Reported) Entered as Reported by: BALBINA CROWLEY on 12/18/16 1417 Ciprofloxacin HCl (Cipro) 500 Mg Tablet, 500 MG PO BID Prescribed by: JAKE KAPADIA on 07/31/21 1110 Doxazosin Mesylate (Doxazosin Mesylate) 8 Mg Tablet, 8 MG PO DAILY, (Reported) Entered as Reported by: BALBINA CROWLEY on 12/18/16 1417 Ketorolac Tromethamine (Ketorolac Tromethamine) 10 Mg Tablet, 10 MG PO Q6H Prescribed by: JAKE KAPADIA on 07/31/21 1112 Review of Systems Review of Systems Unable to obtain due to patient's altered mental status. (SHANKAR BAPTISTE) Constitutional: see HPI (JAYDON LEIGH MD) Past Rwxqzlh-Vncvfy-Rsdfat Hx Patient Social History Tobacco Use?: No Use of E-Cig and/or Vaping dev: No Substance use?: No Alcohol Use?: No Pt feels they are or have been: No (SHANKAR BAPTISTE) Immunizations Up To Date First/Initial COVID19 Vaccinat: APRIL 2021 Second COVID19 Vaccination Kirit: APRIL 2021 Third COVID19 Vaccination Date: APRIL 2021 (SHANKAR BAPTISTE) Seasonal Allergies Seasonal Allergies: No (SHANKAR BAPTISTE) Past Medical History Surgery/Hospitalization HX: PMH: HTN, PROSTATE CA, STROKE Surgeries: Yes (LEFT CAROTID ENDARTERECTOMY, TRUS PROSTATE BIOPSY 05/26) Adenoidectomy, Tonsillectomy, Transurethral Resection Respiratory: No Currently Using CPAP: No Currently Using BIPAP: No Cardiac: Yes High Cholesterol, Hypertension, Peripheral Vascular Neurological: Yes (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)) Stroke, TIA Reproductive Disorders: No Genitourinary: Yes Benign Prostatic Hyperpl, Prostate Problems Gastrointestinal: Yes Irritable Bowel Musculoskeletal: No Endocrine: No HEENT: Yes ([place], [place] GLASSES) Hearing Impairment: Hard of Hearing Cancer: Yes (CURRENT) Prostate Psychosocial: No Integumentary: No Blood Disorders: No (SHANKAR BAPTISTE) Family Medical History Alzheimer's disease 19 MOTHER Arthritis G8 SISTER FH: melanoma 19 FATHER Physical Exam Vital Signs Vital Signs - First Documented 08/15/22 14:35 Temp 36.5 Pulse 71 Resp 11 B/P (MAP) 135/67 (89) Pulse Ox 97 O2 Delivery Room Air (JAYDON LEIGH MD) Vital Signs Capillary Refill : Less Than 3 Seconds (SHANKAR BAPTISTE) Height, Weight, BMI Height: 5'10.00" Weight: 150lbs. 0.0oz. [id number]; 16.00 BMI Method:Stated General Appearance: No Apparent Distress, Chronically ill HEENT: Moist Mucous Membranes Neck: Limited Range of Motion (Sitting up with chin to chest/head down will not extend his neck backwards to rest his head on the pillow -resistant), Tender Midline Respiratory: Chest Non Tender, Lungs Clear, Normal Breath Sounds, No Accessory Muscle Use, No Respiratory Distress Cardiovascular: Regular Rate, Rhythm, No Murmur, Normal Peripheral Pulses Gastrointestinal: Non Tender, Soft Extremity: Non Tender, No Calf Tenderness, No Pedal Edema Neurologic/Psychiatric: Depressed Affect, Disoriented, Motor Weakness (RUE ) Skin: Normal Color, Warm/Dry (SUBBARAO,SHANKAR) Progress/Results/Core Measures Suspected Sepsis SIRS Temperature: Pulse: 71 Respiratory Rate: 11 Laboratory Tests 08/15/22 14:55: White Blood Count 7.5 Blood Pressure 135 /67 Mean: 89 Laboratory Tests 08/15/22 14:55: Creatinine 0.99, INR Comment 0.9, Platelet Count 251, Total Bilirubin 0.8 (SUBBARAO,SHANKAR) Results/Orders Lab Results Laboratory Tests Test 08/15/22 14:55 08/15/22 16:30 08/15/22 17:47 Range/Units White Blood Count 7.5 4.3-11.0 10^3/uL Red Blood Count 3.66 L 4.30-5.52 10^6/uL Hemoglobin 11.4 L 13.3-17.7 g/dL Hematocrit 34 L 40-54 % Mean Corpuscular Volume 93 80-99 fL Mean Corpuscular Hemoglobin 31 25-34 pg Mean Corpuscular Hemoglobin Concent 34 32-36 g/dL Red Cell Distribution Width 13.7 10.0-14.5 % Platelet Count 251 130-400 10^3/uL Mean Platelet Volume 10.4 9.0-12.2 fL Immature Granulocyte % (Auto) 1 % Neutrophils (%) (Auto) 72 42-75 % Lymphocytes (%) (Auto) 13 12-44 % Monocytes (%) (Auto) 13 H 0-12 % Eosinophils (%) (Auto) 1 0-10 % Basophils (%) (Auto) 1 0-10 % Neutrophils # (Auto) 5.4 1.8-7.8 10^3/uL Lymphocytes # (Auto) 1.0 1.0-4.0 10^3/uL Monocytes # (Auto) 1.0 0.0-1.0 10^3/uL Eosinophils # (Auto) 0.1 0.0-0.3 10^3/uL Basophils # (Auto) 0.1 0.0-0.1 10^3/uL Immature Granulocyte # (Auto) 0.0 0.0-0.1 10^3/uL Prothrombin Time 12.6 12.2-14.7 SEC INR Comment 0.9 0.8-1.4 Activated Partial Thromboplast Time 32 24-35 SEC D-Dimer 0.74 H 0.00-0.49 UG/ML Sodium Level 142 135-145 MMOL/L Potassium Level 4.6 3.6-5.0 MMOL/L Chloride Level 108 H 98-107 MMOL/L Carbon Dioxide Level 25 21-32 MMOL/L Anion Gap 9 5-14 MMOL/L Blood Urea Nitrogen 28 H 7-18 MG/DL Creatinine 0.99 0.60-1.30 MG/DL Estimat Glomerular Filtration Rate 75 BUN/Creatinine Ratio 28 Glucose Level 123 H 70-105 MG/DL Calcium Level 9.4 8.5-10.1 MG/DL Corrected Calcium 9.6 8.5-10.1 MG/DL Total Bilirubin 0.8 0.1-1.0 MG/DL Aspartate Amino Transf (AST/SGOT) 22 5-34 U/L Alanine Aminotransferase (ALT/SGPT) 23 0-55 U/L Alkaline Phosphatase 100 40-136 U/L Troponin I < 0.028 <0.028 NG/ML Total Protein 6.7 6.4-8.2 GM/DL Albumin 3.8 3.2-4.5 GM/DL Glucometer 127 H 70-110 MG/DL Urine Color YELLOW Urine Clarity CLEAR Urine pH 5.5 5-9 Urine Specific [place] >=1.030 1.016-1.022 Urine Protein NEGATIVE NEGATIVE Urine Glucose (UA) NEGATIVE NEGATIVE Urine Ketones NEGATIVE NEGATIVE Urine Nitrite NEGATIVE NEGATIVE Urine Bilirubin NEGATIVE NEGATIVE Urine Urobilinogen 1.0 < = 1.0 MG/DL Urine Leukocyte Esterase NEGATIVE NEGATIVE Urine RBC (Auto) NEGATIVE NEGATIVE Urine RBC RARE /HPF Urine WBC 2-5 /HPF Urine Squamous Epithelial Cells NONE /HPF Urine Crystals NONE /LPF Urine Bacteria TRACE /HPF Urine Casts PRESENT /LPF Urine Hyaline Casts RARE /LPF Urine Mucus NEGATIVE /LPF Urine Culture Indicated NO (JAYDON LEIGH MD) My Orders Orders - JAYDON LEIGH MD Cbc With Automated Diff (08/15/22 15:55) Protime With Inr (08/15/22 15:55) Partial Thromboplastin Time (08/15/22 15:55) Comprehensive Metabolic Panel (08/15/22 15:55) Fibrin Degradation Products (08/15/22 15:55) Troponin I [place] (08/15/22 15:55) Ua Culture If Indicated (08/15/22 15:55) Chest 1 View, Ap/Pa Only (08/15/22 15:55) Ekg Tracing (08/15/22 15:55) Accucheck Stat ONCE (08/15/22 15:55) Ed Iv/Invasive Line Start (08/15/22 15:55) Ed Iv/Invasive Line Start (08/15/22 15:55) Vital Signs Stroke Patient Q15M (08/15/22 15:55) Ct Head Wo-R/O Stroke (08/15/22 15:55) O2 (08/15/22 15:55) Intake & Output 06,14,22 (08/15/22 15:55) Monitor-Rhythm Ecg Trace Only (08/15/22 15:55) Dysphagia Screening Tool Q10MX1 (08/15/22 15:55) Post Thrombolytic Adminstratio (08/15/22 15:55) Accucheck Stat ONCE (08/15/22 15:55) (JAYDON LEIGH MD) Vital Signs/I&O 08/15/22 08/15/22 14:35 18:00 Temp 36.5 Pulse 71 75 Resp 11 18 B/P (MAP) 135/67 (89) 125/65 Pulse Ox 97 97 O2 Delivery Room Air Room Air (JAYDON LEIGH MD) Vital Signs/I&O Capillary Refill : Less Than 3 Seconds (SHANKAR BAPTISTE) Blood Pressure Mean: 89 Point of Care Testing Finger Stick Blood Glucose: 127 (SHANKAR BAPTISTE) Progress Note : Time: 17:49 Progress Note Patient seen and examined by me, 87-year-old from medical [place] chief complaint of poor responsiveness. Identical visit today as the last ED visit. Confused, not feeding himself, excessive somnolence. I performed history and physical exam independent of the medical student however I do agree with her documentation. Patient is arousable to voice. Stable vital signs. Confused speech. No focal deficits. He does home hold his right upper extremity in contracture but is able to relax it with encouragement. Previous stroke with residual right-sided weakness on the medical record. I reviewed the MAR that came with the patient, it is notable that the patient did have a dose of Ativan early this morning at 2:30 in the morning. Exactly the same as prior presentation to the ED. I suspect he has a prolonged reaction to the Ativan. He has no clinical or objective findings of sepsis, stroke, ac tolowa dee-ni' coronary syndrome or any GI pathology. Exam is complete really unremarkable except for his somnolence and confused speech. I would recommend a discharge of the patient not be given Ativan again as it seems to cause the symptoms. shelter physician may need to review medication administration for Mr. Shelley. (JAYDON LEIGH MD) ECG Initial ECG Impression Date: Aug 15, 2022 Initial ECG Impression Time: 16:28 Initial ECG Rate: 75 Initial ECG Rhythm: Normal Sinus Initial ECG Intervals NC 273 QRS 82 QTc 386 Comment Significant baseline artifact; no ectopy; no gross ST segment elevation or depression. First Degree AV Block (JAYDON LEIGH MD) Diagnostic Imaging Diagonstic Imaging: Xray Comments [facility] [place] [place] NAME: ALFONSO GOMEZ [facility] REC#: [id number] PT STATUS: REG ER : 1935 PHYSICIAN: JAYDON LEIGH MD ADMIT DATE: 08/15/22/ER Signed Date of Exam:08/15/22 CHEST 1 VIEW, AP/PA ONLY INDICATION: Head drooping and drooling. EXAMINATION: Portable chest, 4:08 p.m. FINDINGS: Heart size and pulmonary vascularity are normal. Lungs are clear. There are no effusions or pneumothoraces. There is a hiatal hernia. IMPRESSION: No acute abnormalities in the chest. Dictated by: Dictated on workstation # [id number] Dict: 08/15/221623 Trans: 08/15/221653 [id number] Interpreted by: PETER GLASS MD Electronically signed by: PETER GLASS MD 08/15/221653 Diagonstic Imaging: CT Comments [facility] [place] [place] NAME: ALFONSO GOMEZ [facility] REC#: [id number] PT STATUS: REG ER : 1935 PHYSICIAN: JAYDON LEIGH MD ADMIT DATE: 08/15/22/ER Signed Date of Exam:08/15/22 CT HEAD WO-R/O STROKE INDICATION: Stroke alert, facial drooping and right-sided weakness. TECHNIQUE: Multiple contiguous axial images were obtained through the brain without the use of intravenous contrast. Auto Exposure Controls were utilized during the CT exam to meet ALARA standards for radiation dose reduction. COMPARISON: Comparison made to prior CT of 04/15/2022. FINDINGS: There are fairly extensive atrophic changes throughout the cerebral hemispheres. There are fairly extensive chronic ischemic changes in the deep white matter with old lacunar infarcts in the left periventricular white matter. There is no subdural or epidural collection. There is no acute hemorrhage. There is an old occipital infarct on the left side. Compared to the prior study, the subarachnoid blood in the left sylvian fissure and left temporal sulci appears to have resolved with no recurrence. Calvarial windows show no acute finding. There is chronic deformity of the anterior wall of the right maxillary sinus. IMPRESSION: Fairly extensive atrophic change and chronic ischemic change in deep white matter. Resolution of subarachnoid hemorrhage compared with 04/15/2022. 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 No acute intracranial finding. Dictated by: Dictated on workstation # [id number] Dict: 08/15/221623 Trans: 08/15/221707 AS6 [id number] Interpreted by: RAJ FRASER MD Electronically signed by: RAJ FRASER MD 08/15/221707 (JAYDON LEIGH MD) Departure Impression Primary Impression: Adverse effect of benzodiazepine Qualified Codes: T42.4X5A - Adverse effect of benzodiazepines, initial encounter Disposition: 01 HOME, SELF-CARE Condition: Improved Departure-Patient Inst. Decision time for Depature: 17:51 (JAYDON LEIGH MD) Referrals: SAM LANCASTER MD (PCP/Family) Primary Care Physician Patient Instructions: Adverse Drug Reactions, Adult ED Add. Discharge Instructions: It would be my recommendation that Alfonso not receive any more Ativan as it seems to cause the symptoms. Monitor him for any new symptoms such as shortness of breath, vomiting or worsening confusion. Work-up today has been unremarkable for any acute findings of stroke, heart attack or infection. Return to the emergency department for any new, concerning or emergent complaints. Verification and Attestation of Medical Student E/M Service A medical student performed and documented this service in my presence. I reviewed and verified all information documented by the medical student and made modifications to such information, when appropriate. I personally performed the physical exam and medical decision making. Jaydon Leigh, Aug 15, 2022,17:53 (JAYDON LEIGH MD) Copy Copies To 1: SAM LANCASTER MD, NATASHA Aug 15, 2022 17:08 JAYDON LEIGH MD Aug 15, 2022 17:52
[2022-08-15 17:55] LABS: BILIRUBIN,URINE NEGATIVE (NEGATIVE); CLARITY,URINE CLEAR; COLOR,URINE YELLOW; GLUCOSE, URINE (UA) NEGATIVE (NEGATIVE); KETONES,URINE NEGATIVE (NEGATIVE); LEUKOCYTE ESTERASE ,URINE NEGATIVE (NEGATIVE); NITRITE,URINE NEGATIVE (NEGATIVE); PH,URINE 5.5 (5-9); PROTEIN,URINE NEGATIVE (NEGATIVE)
[2022-08-15 18:00] VITALS: BP 125/65
[2022-08-15 18:03] LABS: BACTERIA,URINE TRACE /HPF; HYALINE CASTS, URINE RARE /LPF; RBC,URINE RARE /HPF
== END 2022-08-15 17:58 | disposition home or self-care (01) ==
LOC: EDUNIT# 14:16 → ER 14:20
DX: R41.0 Disorientation, unspecified (principal); T42.4X5A Adverse effect of benzodiazepines, initial encounter; Z86.73 Personal history of transient ischemic attack (TIA), and cerebral infarction without residual deficits
CPT/HCPCS: 36415; 70450; 71045; 80053; 81000; 82947; 84484; 85025; 85379; 85610; 85730; 93005; 93041

== ENCOUNTER 2022-10-12 12:23 | Emergency (ER) | payer MEDICARE, MEDICAID ==
[~2022-10-12] VITALS: Ht 177.8 cm; Wt 52.4 kg
--- NOTE | 2022-10-12 12:59 | ED General ---
General Chief Complaint: Altered Mental Status Stated Complaint: AMS - FALL Source of Information: Patient, Caregiver, [facility] Records Exam Limitations: Physical Impairments History of Present Illness Date Seen by Provider: Oct 12, 2022 Time Seen by Provider: 12:34 Initial Comments [facility] was reported to have had an unwitnessed fall. He has had increasing altered mental status of the week and is talking about people that are not there and trying to find a cat. Apparently he was found on the floor this morning try to get under his bed and was looking for a cat. correction nurses are concerned that he may be dehydrated and also concerned about the possibility of the fall. He is accompanied by hiv/aids care nurse from the half-way who relates story of finding the patient searching for the car under the bed. She reports this is a change from his normal and he seems to be a bit weaker. Improvement of diarrhea. He did report that he has had some urinary incontinence. Patient is very hard of hearing but is also somewhat confused and very poor historian. He does follow simple commands and answer simple questions.He denies any pain. Timing/Duration: 1-3 Hours (Unwitnessed fall), 1 Week (Change in mental status) Severity: Mild Associated Systoms: No Chest Pain, No Shortness of Air Allergies and Home Medications Allergies Coded Allergies: Sulfa (Sulfonamide Antibiotics) (Verified Allergy, Unknown, 08/01/22) Patient Home Medication List Home Medication List Reviewed: Yes (correction med list reviewed) Atorvastatin Calcium (Atorvastatin Calcium) 40 Mg Tablet, 40 MG PO DAILY, (Reported) Entered as Reported by: BALBINA CROWLEY on 12/18/16 141 Ciprofloxacin HCl (Cipro) 500 Mg Tablet, 500 MG PO BID Prescribed by: JAKE KAPADIA on 07/31/21 111 Doxazosin Mesylate (Doxazosin Mesylate) 8 Mg Tablet, 8 MG PO DAILY, (Reported) Entered as Reported by: BALBINA CROWLEY on 12/18/16 141 Ketorolac Tromethamine (Ketorolac Tromethamine) 10 Mg Tablet, 10 MG PO Q6H Prescribed by: JAKE KAPADIA on 07/31/21 1112 Review of Systems Review of Systems Constitutional: see HPI; No fever Respiratory: No cough Gastrointestinal: No diarrhea, No vomiting Musculoskeletal: No back pain Skin: change in color (Skin tear with ecchymosis), lesions (Skin tear) Past Wgidjyc-Qrxnoj-Vwwjwd Hx Patient Social History Tobacco Use?: No Substance use?: No Alcohol Use?: No Immunizations Up To Date First/Initial COVID19 Vaccinat: APRIL 2021 Second COVID19 Vaccination Kirit: APRIL 2021 Third COVID19 Vaccination Date: APRIL 2021 Seasonal Allergies Seasonal Allergies: No Past Medical History Surgery/Hospitalization HX: PMH: HTN, PROSTATE CA, STROKE Surgeries: Yes (LEFT CAROTID ENDARTERECTOMY, TRUS PROSTATE BIOPSY 05/26) Adenoidectomy, Tonsillectomy, Transurethral Resection Respiratory: No Currently Using CPAP: No Currently Using BIPAP: No Cardiac: Yes High Cholesterol, Hypertension, Peripheral Vascular Neurological: Yes (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)) Stroke, TIA Reproductive Disorders: No Genitourinary: Yes Benign Prostatic Hyperpl, Prostate Problems Gastrointestinal: Yes Irritable Bowel Musculoskeletal: No Endocrine: No HEENT: Yes ([place], WEARS GLASSES) Hearing Impairment: Hard of Hearing Cancer: Yes (CURRENT) Prostate Psychosocial: No Integumentary: No Blood Disorders: No Family Medical History Reviewed Nursing Family Hx Alzheimer's disease 19 MOTHER Arthritis G8 SISTER FH: melanoma 19 FATHER No Pertinent Family Hx Physical Exam Vital Signs Vital Signs - First Documented 10/12/22 12:40 Temp 35.7 Pulse 59 Resp 20 B/P (MAP) 99/53 (68) Pulse Ox 100 O2 Delivery Room Air Capillary Refill : Height, Weight, BMI Height: 5'10.00" Weight: 150lbs. 0.0oz. [id number]; 16.00 BMI Method:Stated General Appearance: No Apparent Distress, Thin, Other (Kyphotic) HEENT: PERRL/EOMI, TM Abnormal (L), TM Abnormal (R), Other (Mucous membranes dry) Neck: Non Tender, Supple; No Tender Midline; Other (Kyphotic) Respiratory: Lungs Clear, Normal Breath Sounds Cardiovascular: Regular Rate, Rhythm, No Murmur Gastrointestinal: Non Tender, Soft Back: No Vertebral Tenderness; Other (Kyphotic) Extremity: No Normal Range of Motion, No Non Tender Neurologic/Psychiatric: Alert, Other (Oriented to self only.) Skin: Normal Color, Warm/Dry Progress/Results/Core Measures Suspected Sepsis SIRS Temperature: Pulse: Respiratory Rate: Laboratory Tests 10/12/22 13:07: White Blood Count 7.4 Blood Pressure / Mean: Laboratory Tests 10/12/22 13:07: Creatinine 0.84, Platelet Count 184, Total Bilirubin 0.5 Results/Orders Lab Results Laboratory Tests Test 10/12/22 13:07 10/12/22 13:53 Range/Units White Blood Count 7.4 4.3-11.0 10^3/uL Red Blood Count 3.29 L 4.30-5.52 10^6/uL Hemoglobin 10.3 L 13.3-17.7 g/dL Hematocrit 32 L 40-54 % Mean Corpuscular Volume 96 80-99 fL Mean Corpuscular Hemoglobin 31 25-34 pg Mean Corpuscular Hemoglobin Concent 33 32-36 g/dL Red Cell Distribution Width 15.4 H 10.0-14.5 % Platelet Count 184 130-400 10^3/uL Mean Platelet Volume 10.8 9.0-12.2 fL Immature Granulocyte % (Auto) 1 % Neutrophils (%) (Auto) 80 H 42-75 % Lymphocytes (%) (Auto) 7 L 12-44 % Monocytes (%) (Auto) 12 0-12 % Eosinophils (%) (Auto) 0 0-10 % Basophils (%) (Auto) 0 0-10 % Neutrophils # (Auto) 5.9 1.8-7.8 10^3/uL Lymphocytes # (Auto) 0.5 L 1.0-4.0 10^3/uL Monocytes # (Auto) 0.9 0.0-1.0 10^3/uL Eosinophils # (Auto) 0.0 0.0-0.3 10^3/uL Basophils # (Auto) 0.0 0.0-0.1 10^3/uL Immature Granulocyte # (Auto) 0.0 0.0-0.1 10^3/uL Neutrophils % (Manual) 85 % Lymphocytes % (Manual) 5 % Monocytes % (Manual) 10 % Acanthocytes MODERATE Sodium Level 144 135-145 MMOL/L Potassium Level 3.7 3.6-5.0 MMOL/L Chloride Level 110 H 98-107 MMOL/L Carbon Dioxide Level 25 21-32 MMOL/L Anion Gap 9 5-14 MMOL/L Blood Urea Nitrogen 28 H 7-18 MG/DL Creatinine 0.84 0.60-1.30 MG/DL Estimat Glomerular Filtration Rate 85 BUN/Creatinine Ratio 33 Glucose Level 98 70-105 MG/DL Calcium Level 9.3 8.5-10.1 MG/DL Corrected Calcium 9.9 8.5-10.1 MG/DL Total Bilirubin 0.5 0.1-1.0 MG/DL Aspartate Amino Transf (AST/SGOT) 31 5-34 U/L Alanine Aminotransferase (ALT/SGPT) 63 H 0-55 U/L Alkaline Phosphatase 111 40-136 U/L C-Reactive Protein High Sensitivity 0.39 0.00-0.50 MG/DL Total Protein 6.1 L 6.4-8.2 GM/DL Albumin 3.3 3.2-4.5 GM/DL Urine Color YELLOW Urine Clarity CLOUDY Urine pH 5.5 5-9 Urine Specific [place] >=1.030 1.016-1.022 Urine Protein 1+ H NEGATIVE Urine Glucose (UA) NEGATIVE NEGATIVE Urine Ketones NEGATIVE NEGATIVE Urine Nitrite NEGATIVE NEGATIVE Urine Bilirubin NEGATIVE NEGATIVE Urine Urobilinogen 1.0 < = 1.0 MG/DL Urine Leukocyte Esterase 2+ H NEGATIVE Urine RBC (Auto) 2+ H NEGATIVE Urine RBC 25-50 H /HPF Urine WBC >100 H /HPF Urine Crystals NONE /LPF Urine Bacteria LARGE H /HPF Urine Casts PRESENT /LPF Urine Hyaline Casts 0-2 H /LPF Urine Mucus NEGATIVE /LPF Urine Culture Indicated YES My Orders Orders - PETER HSIEH MD Ct Head Wo (10/12/22 12:52) Cbc With Automated Diff (10/12/22 12:52) Comprehensive Metabolic Panel (10/12/22 12:52) Hs C Reactive Protein (10/12/22 12:52) Ua Culture If Indicated (10/12/22 12:52) Straight Cath For Spec.-Adult (10/12/22 12:52) Ed Iv/Invasive Line Start (10/12/22 12:52) Ns Iv 500 Ml (Sodium Chloride 0.9%) (10/12/22 13:00) Manual Differential (10/12/22 13:07) Urine Culture (10/12/22 13:53) Ceftriaxone 1 Gm Pre-Mix (Rocephin 1 Gm (10/12/22 14:16) Nitrofurantoin Capsule (Macrodantin Caps (10/12/22 14:30) Medications Given in ED Current Medications Medications Dose Ordered Sig/Lele Route Start Time Stop Time Status Last Admin Dose Admin Sodium Chloride 500 ml @ 0 mls/hr Q0M ONCE IV 10/12/22 13:00 10/12/22 13:01 DC 10/12/22 13:16 500 MLS/HR Vital Signs/I&O 10/12/22 12:40 Temp 35.7 Pulse 59 Resp 20 B/P (MAP) 99/53 (68) Pulse Ox 100 O2 Delivery Room Air Capillary Refill : Progress Note : Progress Note Seen and evaluated. We will get CT of the head due to concerns about possible fall and history of intracerebral hemorrhage. We will check basic labs inclu ding CBC and CMP. UA ordered via straight cath. Normal saline 500 mL bolus ordered. Monitor patient. Differential includes traumatic brain injury, dehydration, UTI, electrolyte abnormality 1410: CT head reviewed by me and I do not see any obvious intracranial hemorrhage on my interpretation. Radiology report reviewed and agrees. See below. CBC shows normal white count with slightly lower hemoglobin at 10.2. Similar when compared to previous labs. No left shift noted. Chemistry shows sodium at upper limits of normal with elevated chloride and normal creatinine. Slightly elevated LFTs with normal CRP. UA is pending. Monitor patient. 1420: UA noted with leukocytes large amount of bacteria and white cells. I do have concerns about urinary tract infection. Also noted specific gravity of greater than 1.030. I did look at his history and previous culture shows Enterococcus faecalis that was pansensitive but requires special antibiotics of which outpatient regimens would be nitrofurantoin or levofloxacin. I do not want to use levofloxacin on this patient in his age group. Nitrofurantoin would be possible but still concerning in the elderly. That being said he has normal creatinine and normal GFR. He is only able to take medications crushed or liana pension version. Given that, I have consulted the pharmacist to evaluate if nitrofurantoin can be crushed. The capsules are extended release and we cannot do anything with that but the nitrofurantoin that can be taken 4 times a day, that 50 mg capsules, can be opened and put in food or juice. We will order that outpatient. I do not have indication for admission. His blood pressure remains low side of normal but in the normal range and he is not tachycardic or febrile. He resides in a nursing care facility. We will order meds outpatient and then discharge him back to nursing care facility. 1447: I did discuss with nursing. He had not very much output from the first 500 mL normal saline bag. We will go ahead and repeat that x1 now. He is getting the Rocephin 1 g IV. Pending nitrofurantoin. Discharged back to nursing facility after fluid completion. flight attendant ramp verbalized understanding of instructions and agreement with plan. Diagnostic Imaging Diagonstic Imaging: CT Plain Films/CT/US/NM/MRI: head Comments [facility] [place], [place] NAME: ALFONSO GOMEZ [facility] REC#: [id number] PT STATUS: REG ER : 1935 PHYSICIAN: PETER HSIEH MD ADMIT DATE: 10/12/22/ER Draft Date of Exam:10/12/22 CT HEAD WO PROCEDURE: CT head without contrast. TECHNIQUE: Multiple contiguous axial images were obtained through the brain without the use of intravenous contrast. Auto Exposure Controls were utilized during the CT exam to meet ALARA standards for radiation dose reduction. INDICATION: Fall. COMPARISON: Prior head CT from 08/15/2022. FINDINGS: The ventricles and sulci are prominent, consistent with cerebral volume loss. Periventricular low-attenuation is again noted, consistent with chronic microvascular ischemia. There is no sulcal effacement or midline shift. There appear to be old lacunar infarcts in the left basal ganglia. No acute intra-axial or extra-axial hemorrhage is detected. The cisterns are patent. The visualized paranasal sinuses are clear. 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 IMPRESSION: Stable chronic changes when compared with the exam from 08/15/2022. No acute intracranial process is detected. Dictated on workstation # [id number] Dict: 10/12/22 1338 Trans: 10/12/22 1404 [id number] Interpreted by: RUFINA MATTSON MD Electronically signed by: Departure Impression Primary Impression: Urinary tract infection Qualified Codes: N30.01 - Acute cystitis with hematuria Additional Impression: Altered mental status, unspecified Qualified Codes: R41.0 - Disorientation, unspecified Disposition: HOME, SELF-CARE Condition: Stable Departure-Patient Inst. Decision time for Depature: 14:28 Referrals: SAM LANCASTER MD (PCP/Family) Primary Care Physician Patient Instructions: Altered Mental Status (DC), Urinary Tract Infections in Adults Add. Discharge Instructions: All discharge instructions reviewed with patient and/or family. Voiced understanding. Encourage plenty of fluids. Continue medications as directed. Follow-up with your doctor early this week for recheck and further evaluation and to review cultures. Return for worse pain, fever, vomiting, weakness, breathing problems or other concerns as needed. Scripts Nitrofurantoin Macrocrystal (Nitrofurantoin) 50 Mg Capsule 50 MG PO Q6H for 5 Days, #20 CAP May open capsules and sprinkle over food or mix with fluid Prov: PETER HSIEH MD 10/12/22 Copy Copies To 1: SAM LANCASTER MD, TIMOTHY D MD Oct 12, 2022 12:59
[2022-10-12] MEDS ORDERED: NS IV 500 ML 500 ML IV ONE ×2 (13:00→14:30)
[2022-10-12 13:13] LABS: BASOPHILS % (AUTO) 0 % (0-10); EOSINOPHILS % (AUTO) 0 % (0-10); HEMATOCRIT 32 % (40-54); HEMOGLOBIN 10.3 g/dL (13.3-17.7); LYMPHOCYTES # (AUTO) 0.5 10^3/uL (1.0-4.0); LYMPHOCYTES % (AUTO) 7 % (12-44); MEAN CORPUSCULAR HEMOGLOBIN 31 pg (25-34); MEAN CORPUSCULAR HGB CONC 33 g/dL (32-36); MEAN CORPUSCULAR VOLUME 96 fL (80-99); MEAN PLATELET VOLUME 10.8 fL (9.0-12.2); MONOCYTES # (AUTO) 0.9 10^3/uL (0.0-1.0); MONOCYTES % (AUTO) 12 % (0-12); NEUTROPHILS # (AUTO) 5.9 10^3/uL (1.8-7.8); NEUTROPHILS % (AUTO) 80 % (42-75); PLATELET COUNT 184 10^3/uL (130-400); WHITE BLOOD COUNT 7.4 10^3/uL (4.3-11.0)
[2022-10-12 13:23] LABS: ALBUMIN 3.3 GM/DL (3.2-4.5)
[2022-10-12 13:24] LABS: POTASSIUM 3.7 MMOL/L (3.6-5.0)
[2022-10-12 13:25] LABS: CALCIUM 9.3 MG/DL (8.5-10.1)
[2022-10-12 13:26] LABS: TOTAL PROTEIN 6.1 GM/DL (6.4-8.2)
[2022-10-12 13:28] LABS: BILIRUBIN,TOTAL 0.5 MG/DL (0.1-1.0)
[2022-10-12 13:30] LABS: CREATININE SERUM 0.84 MG/DL (0.60-1.30)
[2022-10-12 13:35] LABS: LYMPHOCYTES % (MANUAL) 5 %; MONOCYTES % (MANUAL) 10 %; NEUTROPHILS % (MANUAL) 85 %
[2022-10-12 13:36] LABS: ACANTHOCYTES MODERATE
[2022-10-12 14:00] LABS: BILIRUBIN,URINE NEGATIVE (NEGATIVE); CLARITY,URINE CLOUDY; COLOR,URINE YELLOW; GLUCOSE, URINE (UA) NEGATIVE (NEGATIVE); KETONES,URINE NEGATIVE (NEGATIVE); LEUKOCYTE ESTERASE ,URINE 2+ (NEGATIVE); NITRITE,URINE NEGATIVE (NEGATIVE); PH,URINE 5.5 (5-9); PROTEIN,URINE 1+ (NEGATIVE)
--- NOTE | 2022-10-12 14:05 | Diagnostic Imaging Report ---
PROCEDURE: CT head without contrast. TECHNIQUE: Multiple contiguous axial images were obtained through the brain without the use of intravenous contrast. Auto Exposure Controls were utilized during the CT exam to meet ALARA standards for radiation dose reduction. INDICATION: Fall. COMPARISON: Prior head CT from 08/15/2022. FINDINGS: The ventricles and sulci are prominent, consistent with cerebral volume loss. Periventricular low-attenuation is again noted, consistent with chronic microvascular ischemia. There is no sulcal effacement or midline shift. There appear to be old lacunar infarcts in the left basal ganglia. No acute intra-axial or extra-axial hemorrhage is detected. The cisterns are patent. The visualized paranasal sinuses are clear. 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 IMPRESSION: Stable chronic changes when compared with the exam from 08/15/2022. No acute intracranial process is detected. Dictated by: Dictated on workstation # [id number]
[2022-10-12 14:10] LABS: BACTERIA,URINE LARGE /HPF; HYALINE CASTS, URINE 0-2 /LPF; RBC,URINE 25-50 /HPF; WBC,URINE >100 /HPF
[2022-10-12] MEDS ORDERED: cefTRIAXone 1 GM PRE-MIX 50 ML IV STA (14:16)
[2022-10-12] MEDS ORDERED: NITROFURANTOIN 50 MG (MACRODANTIN) CAP PO ONE (14:30)
[2022-10-12] MEDS ORDERED: NITR50CA PO (14:31)
[2022-10-12 15:13] VITALS: BP 101/53
== END 2022-10-12 15:15 | disposition home or self-care (01) ==
LOC: EDUNIT# 12:23 → ER 12:24
DX: R41.82 Altered mental status, unspecified (principal); N39.0 Urinary tract infection, site not specified; Z88.1 Allergy status to other antibiotic agents
CPT/HCPCS: 36415; 51701; 70450; 80053; 81000; 85007; 85027; 86141; 87077; 87088; 87186

== ENCOUNTER 2022-10-20 08:11 | Emergency (ER) | payer MEDICARE, MEDICAID ==
[~2022-10-20] VITALS: Ht 166 cm; Wt 49.8 kg
[~2022-10-20 08:11] MED LIST changes: +NITR50CA PO
[2022-10-20] MEDS ORDERED: NS IV 500 ML 500 ML IV SCH (08:30)
--- NOTE | 2022-10-20 08:57 | ED General ---
General Chief Complaint: General Problems/Pain Stated Complaint: LETHARGIC Nursing Triage Note: PT TO [facility] FROM [facility] WITH A CC OF LETHARGIC AND WEAKNESS, O2 IN THE 70% ON ROOM AIR THIS A.M. RECENT HX OF FALL, DEHYDRATION AND UTI LAST WEEK, 93% ON 6 LPM ON ARRIVAL. PT IS DNR AND STAFF AT THE ASSISTED STATED THEY FELT THE PT WAS NEEDING TO BE PUT ON HOSPICE BUT DPOA WANTED THE PT BROUGHT TO THE ER TO BE CHECKED OUT. PT NORMALLY WALKS WITH A WALKER BUT THE LAST WEEK HAS BEEN IN A W/C AND JUST GETTING WEAKER. PT'S EYES OPEN WHEN WE MOVE HIM AND TO PAINFUL STIMULI BUT NOT TALKING OR ANSWERING QUESTIONS Source of Information: Patient, Family Exam Limitations: No Limitations History of Present Illness Date Seen by Provider: Oct 20, 2022 Time Seen by Provider: 08:14 Initial Comments 87 yo M here from nursing facility. RN states he has been declining overall over the last month or so. They have recommended to family possible hospice care. Family is currently trying to decide. He was found to be hypoxic and minimally responsive this morning. Recent treatment for dehydration and UTI about 2 weeks ago, just general decline in health overall. Allergies and Home Medications Allergies Coded Allergies: Sulfa (Sulfonamide Antibiotics) (Verified Allergy, Unknown, 08/01/22) Patient Home Medication List Home Medication List Reviewed: Yes Atorvastatin Calcium (Atorvastatin Calcium) 40 Mg Tablet, 40 MG PO DAILY, (Reported) Entered as Reported by: BALBINA CROWLEY on 12/18/16 1417 Ciprofloxacin HCl (Cipro) 500 Mg Tablet, 500 MG PO BID Prescribed by: JAKE KAPADIA on 07/31/21 1110 Doxazosin Mesylate (Doxazosin Mesylate) 8 Mg Tablet, 8 MG PO DAILY, (Reported) Entered as Reported by: BALBINA CROWLEY on 12/18/16 1417 Ketorolac Tromethamine (Ketorolac Tromethamine) 10 Mg Tablet, 10 MG PO Q6H Prescribed by: JAKE KAPADIA on 07/31/21 1112 Nitrofurantoin Macrocrystal (Nitrofurantoin) 50 Mg Capsule, 50 MG PO Q6H Prescribed by: PETER HSIEH on 10/12/22 1431 Review of Systems Review of Systems Constitutional: other (Unable to obtain review of systems as patient is nonverbal with us due to lethargy) Past Tettzzh-Eowruh-Dwblwx Hx Immunizations Up To Date First/Initial COVID19 Vaccinat: APRIL 2021 Second COVID19 Vaccination Kirit: APRIL 2021 Third COVID19 Vaccination Date: 2021 Seasonal Allergies Seasonal Allergies: No Past Medical History Surgery/Hospitalization HX: All medical, social, family and surgical history is obtained via past records as the patient is currently nonverbal PMH: HTN, PROSTATE CA, STROKE, TBI, BPH, SUBDURAL HEMATOMA, GERD, UTI, ANXIETY, HYPERCHOLESTEREMIA Surgeries: Yes (LEFT CAROTID ENDARTERECTOMY, TRUS PROSTATE BIOPSY 05/26) Adenoidectomy, Tonsillectomy, Transurethral Resection Respiratory: No Currently Using CPAP: No Currently Using BIPAP: No Cardiac: Yes High Cholesterol, Hypertension, Peripheral Vascular Neurological: Yes (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)) Stroke, TIA Reproductive Disorders: No Genitourinary: Yes Benign Prostatic Hyperpl, Prostate Problems Gastrointestinal: Yes Irritable Bowel Musculoskeletal: No Endocrine: No HEENT: Yes ([place], WE[place] GLASSES) Hearing Impairment: Hard of Hearing Cancer: Yes (CURRENT) Prostate Psychosocial: No Integumentary: No Blood Disorders: No Family Medical History Alzheimer's disease 19 MOTHER Arthritis G8 SISTER FH: melanoma 19 FATHER No Pertinent Family Hx Physical Exam Vital Signs Vital Signs - First Documented 10/20/22 08:18 Temp 36.5 Pulse 49 Resp 16 B/P (MAP) 89/59 (69) Pulse Ox 93 O2 Delivery Nasal Cannula O2 Flow Rate 6.00 Capillary Refill : Less Than 3 Seconds Height, Weight, BMI Height: 5'10.00" Weight: 150lbs. 0.0oz. 68.222459zt; 18.00 BMI Method:Stated General Appearance: Cachetic, Other (The patient is cachectic, overall appears chronically ill. She will open his eyes only to deep painful stimuli at this time. He is not really responding to verbal commands. He does intermittently open his eyes spontaneously.) HEENT: PERRL/EOMI, Other (Dry mucous membranes.) Neck: Supple Respiratory: Normal Breath Sounds, No Accessory Muscle Use Cardiovascular: Bradycardia, Systolic Murmur Gastrointestinal: Normal Bowel Sounds, Soft Extremity: Other (Dry skin, capillary refill, cachexia) Neurologic/Psychiatric: Other (Grossly intact however he would not cooperate with neuro exam.) Skin: Other Focused Exam Lactate Level 10/20/22 08:45: Lactic Acid Level 3.55*H Lactic Acid Level Laboratory Tests Test 10/20/22 08:45 Lactic Acid Level 3.55 MMOL/L (0.50-2.00) *H Progress/Results/Core Measures Suspected Sepsis SIRS Temperature: Pulse: 49 Respiratory Rate: 16 Laboratory Tests 10/20/22 08:45: White Blood Count 11.5H Blood Pressure 89 /59 Mean: 69 10/20/22 08:45: Lactic Acid Level 3.55*H Laboratory Tests 10/20/22 08:45: Creatinine 1.69H, INR Comment 1.0, Platelet Count 135, Total Bilirubin 0.6 Results/Orders Lab Results Laboratory Tests Test 10/20/22 08:37 10/20/22 08:45 Range/Units Urine Color YELLOW Urine Clarity CLEAR Urine pH 5.5 5-9 Urine Specific [place] 1.025 H 1.016-1.022 Urine Protein TRACE H NEGATIVE Urine Glucose (UA) NEGATIVE NEGATIVE Urine Ketones TRACE H NEGATIVE Urine Nitrite NEGATIVE NEGATIVE Urine Bilirubin NEGATIVE NEGATIVE Urine Urobilinogen 0.2 < = 1.0 MG/DL Urine Leukocyte Esterase TRACE H NEGATIVE Urine RBC (Auto) NEGATIVE NEGATIVE Urine RBC 0-2 /HPF Urine WBC 5-10 H /HPF Urine Squamous Epithelial Cells RARE /HPF Urine Crystals NONE /LPF Urine Bacteria NEGATIVE /HPF Urine Casts NONE /LPF Urine Mucus NEGATIVE /LPF Urine Culture Indicated YES White Blood Count 11.5 H 4.3-11.0 10^3/uL Red Blood Count 3.57 L 4.30-5.52 10^6/uL Hemoglobin 11.0 L 13.3-17.7 g/dL Hematocrit 33 L 40-54 % Mean Corpuscular Volume 92 80-99 fL Mean Corpuscular Hemoglobin 31 25-34 pg Mean Corpuscular Hemoglobin Concent 33 32-36 g/dL Red Cell Distribution Width 15.9 H 10.0-14.5 % Platelet Count 135 130-400 10^3/uL Mean Platelet Volume 12.2 9.0-12.2 fL Immature Granulocyte % (Auto) 0 % Neutrophils (%) (Auto) 93 H 42-75 % Lymphocytes (%) (Auto) 3 L 12-44 % Monocytes (%) (Auto) 3 0-12 % Eosinophils (%) (Auto) 0 0-10 % Basophils (%) (Auto) 1 0-10 % Neutrophils # (Auto) 10.7 H 1.8-7.8 10^3/uL Lymphocytes # (Auto) 0.3 L 1.0-4.0 10^3/uL Monocytes # (Auto) 0.4 0.0-1.0 10^3/uL Eosinophils # (Auto) 0.0 0.0-0.3 10^3/uL Basophils # (Auto) 0.1 0.0-0.1 10^3/uL Immature Granulocyte # (Auto) 0.1 0.0-0.1 10^3/uL Neutrophils % (Manual) 65 % Lymphocytes % (Manual) 4 % Monocytes % (Manual) 2 % Eosinophils % (Manual) 0 % Basophils % (Manual) 0 % Metamyelocytes % 3 % Band Neutrophils 26 % Percent Immature Platelet Fraction 11.8 H 0.0-7.6 % Polychromasia MODERATE Anisocytosis MODERATE Acanthocytes MARKED Prothrombin Time 14.0 12.2-14.7 SEC INR Comment 1.0 0.8-1.4 Sodium Level 144 135-145 MMOL/L Potassium Level 4.6 3.6-5.0 MMOL/L Chloride Level 108 H 98-107 MMOL/L Carbon Dioxide Level 21 21-32 MMOL/L Anion Gap 15 H 5-14 MMOL/L Blood Urea Nitrogen 57 H 7-18 MG/DL Creatinine 1.69 H 0.60-1.30 MG/DL Estimat Glomerular Filtration Rate 39 BUN/Creatinine Ratio 34 Glucose Level 95 70-105 MG/DL Lactic Acid Level 3.55 *H 0.50-2.00 MMOL/L Calcium Level 9.7 8.5-10.1 MG/DL Corrected Calcium 10.7 H 8.5-10.1 MG/DL Total Bilirubin 0.6 0.1-1.0 MG/DL Aspartate Amino Transf (AST/SGOT) 43 H 5-34 U/L Alanine Aminotransferase (ALT/SGPT) 54 0-55 U/L Alkaline Phosphatase 77 40-136 U/L Total Protein 5.3 L 6.4-8.2 GM/DL Albumin 2.8 L 3.2-4.5 GM/DL Influenza Type A (RT-PCR) Not Detected Not Detecte Influenza Type B (RT-PCR) Not Detected Not Detecte SARS-CoV-2 RNA (RT-PCR) Not Detected Not Detecte My Orders Orders - CARICESAR Elizabeth DO Comprehensive Metabolic Panel (10/20/22 08:23) Cbc With Automated Diff (10/20/22 08:23) Ua Culture If Indicated (10/20/22 08:23) Blood Culture (10/20/22 08:23) Protime With Inr (10/20/22 08:23) Chest 1 View, Ap/Pa Only (10/20/22 08:23) Ed Iv/Invasive Line Start (10/20/22 08:23) Vital Signs Adult Sepsis Patie Q15M (10/20/22 08:23) O2 (10/20/22 08:23) Lactic Acid Analyzer (10/20/22 08:23) Influenza A And B By Pcr (10/20/22 08:23) Covid 19 Inhouse Test (10/20/22 08:23) Ns Iv 500 Ml (Sodium Chloride 0.9%) (10/20/22 08:30) Catheter(Urinary) Insert & Ass 03,15 (10/20/22 09:04) Urine Culture (10/20/22 08:37) Manual Differential (10/20/22 08:45) Vital Signs/I&O 10/20/22 10/20/22 10/20/22 08:18 08:30 11:15 Temp 36.5 36.5 Pulse 49 38 Resp 16 12 B/P (MAP) 89/59 (69) 92/75 Pulse Ox 93 93 98 O2 Delivery Nasal Cannula Nasal Cannula Nasal Cannula O2 Flow Rate 6.00 6.00 4.00 Capillary Refill : Less Than 3 Seconds Blood Pressure Mean: 69 Critical Care Note Critical Care Total Time (minutes) 60 Departure Communication (Admissions) Patient is Shirlene, responsive only to deep PVCs stimuli is maintaining his airway. While we are obtaining a work-up his sister arrived who is his power of claims attorney. I did conversation with her about his quality of life currently. She states over the last 3 to 4 weeks it has been significantly decreased and that he would not want to live this way. I discussed conservative treatment trying to find infections and treat them as appropriate versus possible hospice care. She request all testing to be stopped and to start with hospice care. We spoke with the nursing facility who will further work to arrange this. I did write for an order for oxygen for him to have for comfort at the nursing facility. Also placed a Eubanks catheter and wrote an order for this to be continued at that [facility]. Impression Primary Impression: Lethargy Additional Impression: Bradycardia Disposition: 01 HOME, SELF-CARE Condition: Unchanged Departure-Patient Inst. Referrals: SAM LANCASTER MD (PCP/Family) Primary Care Physician Add. Discharge Instructions: After conversation you have indicated he would like to pursue hospice care. This will ultimately be initiated at the nursing facility we will do our best to keep him comfortable at this time. All discharge instructions reviewed with patient and/or family. Voiced understanding. CESAR LACALA DO Oct 20, 2022 08:57
--- NOTE | 2022-10-20 09:22 | Diagnostic Imaging Report ---
CHEST 1 VIEW, AP/PA ONLY Indication: Lethargy, low blood pressure Comparison: 08/15/2022 Findings: Extensive consolidations have developed diffusely throughout the right lung. Left basilar consolidations are also present. No pneumothorax or pleural effusion. Stable mild cardiomegaly. Impression: 1. New consolidations in both lungs are highly likely due to multifocal pneumonia. 2. Advise followup PA and lateral chest radiographs in 4 weeks after appropriate medical management to ensure resolution. Dictated by: Dictated on workstation # [id number]
[2022-10-20 09:32] LABS: BILIRUBIN,URINE NEGATIVE (NEGATIVE); CLARITY,URINE CLEAR; COLOR,URINE YELLOW; GLUCOSE, URINE (UA) NEGATIVE (NEGATIVE); KETONES,URINE TRACE (NEGATIVE); LEUKOCYTE ESTERASE ,URINE TRACE (NEGATIVE); NITRITE,URINE NEGATIVE (NEGATIVE); PH,URINE 5.5 (5-9); PROTEIN,URINE TRACE (NEGATIVE)
[2022-10-20 09:38] LABS: ALBUMIN 2.8 GM/DL (3.2-4.5); POTASSIUM 4.6 MMOL/L (3.6-5.0)
[2022-10-20 09:39] LABS: CALCIUM 9.7 MG/DL (8.5-10.1)
[2022-10-20 09:41] LABS: TOTAL PROTEIN 5.3 GM/DL (6.4-8.2)
[2022-10-20 09:42] LABS: BILIRUBIN,TOTAL 0.6 MG/DL (0.1-1.0)
[2022-10-20 09:44] LABS: CREATININE SERUM 1.69 MG/DL (0.60-1.30)
[2022-10-20 09:49] LABS: EOSINOPHILS % (AUTO) 0 % (0-10); LYMPHOCYTES # (AUTO) 0.3 10^3/uL (1.0-4.0); LYMPHOCYTES % (AUTO) 3 % (12-44); MEAN CORPUSCULAR VOLUME 92 fL (80-99)
[2022-10-20 09:50] LABS: BACTERIA,URINE NEGATIVE /HPF; RBC,URINE 0-2 /HPF; SQUAMOUS EPITHELIAL CELL,UR RARE /HPF
[2022-10-20 09:50] LABS: BASOPHILS # (AUTO) 0.1 10^3/uL (0.0-0.1); BASOPHILS % (AUTO) 1 % (0-10); HEMATOCRIT 33 % (40-54); MEAN CORPUSCULAR HEMOGLOBIN 31 pg (25-34); MEAN CORPUSCULAR HGB CONC 33 g/dL (32-36); MEAN PLATELET VOLUME 12.2 fL (9.0-12.2); MONOCYTES # (AUTO) 0.4 10^3/uL (0.0-1.0); MONOCYTES % (AUTO) 3 % (0-12); NEUTROPHILS # (AUTO) 10.7 10^3/uL (1.8-7.8); NEUTROPHILS % (AUTO) 93 % (42-75); PLATELET COUNT 135 10^3/uL (130-400); WHITE BLOOD COUNT 11.5 10^3/uL (4.3-11.0)
[2022-10-20 10:15] LABS: BAND NEUTROPHILS 26 %; BASOPHILS % (MANUAL) 0 %; EOSINOPHILS % (MANUAL) 0 %; LYMPHOCYTES % (MANUAL) 4 %; METAMYELOCYTES % 3 %; MONOCYTES % (MANUAL) 2 %; NEUTROPHILS % (MANUAL) 65 %; POLYCHROMASIA MODERATE
[2022-10-20 10:16] LABS: ACANTHOCYTES MARKED; ANISOCYTOSIS MODERATE
[2022-10-20 11:15] VITALS: BP 92/75
== END 2022-10-20 11:15 | disposition still patient (30) ==
LOC: EDUNIT# 08:11 → ER 08:12
DX: R53.83 Other fatigue (principal); R00.1 Bradycardia, unspecified; Z20.822 Contact with and (suspected) exposure to COVID-19
CPT/HCPCS: 36415; 51702; 71045; 80053; 81000; 83605; 85007; 85027; 85610; 87040; 87088; 87636